=== PATIENT | male | born 1945 | race Caucasian/White ===

== ENCOUNTER 2016-12-01 18:18 | Inpatient (IN) | payer BC, OTHER ==
[~2016-12-01] VITALS: Ht 167.6 cm; Wt 86.5 kg
[2016-12-01] MEDS ORDERED: SODIUM CHLORIDE 0.9% 1000ML 500 ML IV STA (18:41)
--- NOTE | 2016-12-01 18:48 | EMERGENCY ROOM VISIT NOTE ---
History Report prepared by Gio: Dillan Davidson Under the Supervision of: Dr. Gelacio Irvin M.D. First contact with patient: 18:37 Chief Complaint: URINARY SYMPTOMS Stated Complaint: KIDNEY ASSESSMENT History of Present Illness The patient is a 71 year old male with a pacemaker who presents to the Emergency Room with an elevated creatinine level that was detected prior to arrival today. He says that he got routine lab-work today, and Dr. Lujan of [facility] nephrology then called the patient and told him to come here for evaluation because his creatinine was over 6. The patient notes that his creatinine usually runs around 2. He says that for the past couple of weeks, he has felt a bit fatigued with intermittent mild dizziness, but overall has been okay. The patient says that he thinks that his dizziness was due to his blood pressure fluctuations. He denies any vomiting, fevers, cough, congestion, worsening shortness of breath, or diarrhea. The patient notes no history of creatinine level issues. He is on Plavix daily. The patient denies any recent medication changes, and he says that his sugars have been fine recently. Per the patient's family, Dr. Lujan has mentioned possible dialysis in the future but there has no preparation for dialysis. Source of History: patient, family Onset: Detected prior to arrival today Position: other (global - elevated creatinine) Symptom Intensity: creatinine over 6 Quality: other (referred by driver salesman) Associated Symptoms: + fatigue (over past few weeks), No fevers, No cough, No SOB, No vomiting, No diarrhea Note: Associated symptoms: Intermittent dizziness past few weeks. Denies congestion. Review of Systems See HPI for pertinent positives & negatives. A total of 10 systems reviewed and were otherwise negative. Past Medical & Surgical Medical Problems: (1) Diabetes (2) Heart disease (3) HTN (hypertension) (4) Pacemaker Surgical Problems: (1) History of heart bypass surgery Family History Diabetes mellitus FH: heart disease Hypertension Kidney disease Social History Smoking Status: Former Smoker Alcohol Use: none Marital Status: Housing Status: lives with family Occupation Status: retired Current/Historical Medications Scheduled Aspirin (Aspirin Ec), 81 MG PO DAILY Atorvastatin (Lipitor), 20 MG PO DAILY Carvedilol (Coreg), 25 MG PO BID Cholecalciferol (Vitamin D3), 2 CAP PO DAILY Choline Fenofibrate (Trilipix), 1 CAP PO DAILY Clopidogrel (Plavix), 75 MG PO DAILY Fish Oil ([place]-3), 1 CAP PO DAILY Furosemide (Lasix), 80 MG PO DAILY Insulin Aspart (novoLOG INSULIN PUMP ), 1 EA N/A UD Isosorbide Mononitrate Ext Rel (Imdur Ext Rel), 30 MG PO QAM Lisinopril (Zestril), 40 MG PO DAILY Metolazone (Zaroxolyn), 2.5 MG PO DAILY Spironolactone (Aldactone), 25 MG PO DAILY Allergies Coded Allergies: No Known Allergies (Unverified , 12/01/16) Physical Exam Vital Signs Date Time Temp Pulse Resp B/P (MAP) Pulse Ox O2 Delivery O2 Flow Rate FiO2 12/01/16 20:44 Room Air 12/01/16 19:29 69 19 113/56 94 Room Air 12/01/16 19:12 73 12/01/16 18:28 36.8 62 18 103/51 96 Room Air Physical Exam GENERAL: Patient is in no acute distress. HEENT: No acute trauma, normocephalic atraumatic, mucous membranes moist, no nasal congestion, no scleral icterus. NECK: No stridor, no adenopathy, no meningismus, trachea is midline. LUNGS: Clear to auscultation bilaterally, no wheeze, no rhonchi, breath sounds equal. HEART: Irregular rhythm with a normal rate. No murmurs. ABDOMEN: Soft, nontender, bowel sounds positive, no hernias, no peritonitis. EXTREMITIES: No cyanosis or edema, full range of motion of all the joints without pain or difficulty, no signs for acute trauma. NEUROLOGIC: Oriented x 3, no acute motor or sensory deficits, no focal weakness. SKIN: No rash, no jaundice, no diaphoresis. Medical Decision & Procedures Laboratory Results 12/01/16 19:01 Red Blood Count 4.44, Mean Corpuscular Volume 79.7, Mean Corpuscular Hemoglobin 26.1, Mean Corpuscular Hemoglobin Concent 32.8, Mean Platelet Volume 10.7, Neutrophils (%) (Auto) 72.3, Lymphocytes (%) (Auto) 15.0, Monocytes (%) (Auto) 10.0, Eosinophils (%) (Auto) 2.2, Basophils (%) (Auto) 0.3, Neutrophils # (Auto ) 7.03, Lymphocytes # (Auto) 1.46, Monocytes # (Auto) 0.97, Eosinophils # (Auto ) 0.21, Basophils # (Auto) 0.03 12/01/16 19:01 Test 12/01/16 19:01 12/01/16 19:30 White Blood Count 9.72 K/uL (4.8-10.8) Red Blood Count 4.44 M/uL (4.7-6.1) Hemoglobin 11.6 g/dL (14.0-18.0) Hematocrit 35.4 % (42-52) Mean Corpuscular Volume 79.7 fL (80-100) Mean Corpuscular Hemoglobin 26.1 pg (25-34) Mean Corpuscular Hemoglobin Concent 32.8 g/dl (32-36) Platelet Count 241 K/uL (130-400) Mean Platelet Volume 10.7 fL (7.4-10.4) Neutrophils (%) (Auto) 72.3 % Lymphocytes (%) (Auto) 15.0 % Monocytes (%) (Auto) 10.0 % Eosinophils (%) (Auto) 2.2 % Basophils (%) (Auto) 0.3 % Neutrophils # (Auto) 7.03 K/uL (1.4-6.5) Lymphocytes # (Auto) 1.46 K/uL (1.2-3.4) Monocytes # (Auto) 0.97 K/uL (0.11-0.59) Eosinophils # (Auto) 0.21 K/uL (0-0.5) Basophils # (Auto) 0.03 K/uL (0-0.2) RDW Standard Deviation 46.6 fL (36.4-46.3) RDW Coefficient of Variation 15.8 % (11.5-14.5) Immature Granulocyte % (Auto) 0.2 % Immature Granulocyte # (Auto) 0.02 K/uL (0.00-0.02) Prothrombin Time 12.4 SECONDS (9.0-12.0) Prothromb Time International Ratio 1.2 (0.9-1.1) Activated Partial Thromboplast Time 27.1 SECONDS (21.0-31.0) Partial Thromboplastin Ratio 1.0 Anion Gap 15.0 mmol/L (3-11) Est Creatinine Clear Calc Drug Dose 13.2 ml/min Estimated GFR () 11.6 Estimated GFR (Non- 10.0 BUN/Creatinine Ratio 21.4 (10-20) Calcium Level 8.6 mg/dl (8.5-10.1) Magnesium Level 1.9 mg/dl (1.8-2.4) Total Bilirubin 0.6 mg/dl (0.2-1) Aspartate Amino Transf (AST/SGOT) 35 U/L (15-37) Alanine Aminotransferase (ALT/SGPT) 31 U/L (12-78) Alkaline Phosphatase 21 U/L (45-117) Total Creatine Kinase 461 U/L (39-308) Troponin I 0.495 ng/ml (0-0.045) Total Protein 7.4 gm/dl (6.4-8.2) Albumin 3.5 gm/dl (3.4-5.0) Globulin 3.9 gm/dl (2.5-4.0) Albumin/Globulin Ratio 0.9 (0.9-2) Thyroid Stimulating Hormone (TSH) 1.560 uIu/ml (0.300-4.500) Urine Color YELLOW Urine Appearance CLEAR (CLEAR) Urine pH 6.5 (4.5-7.5) Urine Specific [place] 1.009 (1.000-1.030) Urine Protein NEG (NEG) Urine Glucose (UA) NEG (NEG) Urine Ketones NEG (NEG) Urine Occult Blood TRACE (NEG) Urine Nitrite NEG (NEG) Urine Bilirubin NEG (NEG) Urine Urobilinogen NEG (NEG) Urine Leukocyte Esterase NEG (NEG) Urine WBC (Auto) 1-5 /hpf (0-5) Urine RBC (Auto) 0-4 /hpf (0-4) Urine Hyaline Casts (Auto) 1-5 /lpf (0-5) Urine Epithelial Cells (Auto) 5-10 /lpf (0-5) Urine Bacteria (Auto) NEG (NEG) Laboratory results reviewed by me. Medications Administered Medications (Trade) Dose Ordered Sig/Ilene Route Start Time Stop Time Status Last Admin Dose Admin Sodium Chloride 500 ml @ 999 mls/hr Q31M STAT IV 12/01/16 18:41 12/01/16 19:11 DC 12/01/16 18:41 999 MLS/HR ECG Indication: other (elevated creatinine) Rate (beats per minute): 76 Rhythm: other (AV pacemaker) Findings: RBBB, no acute ischemic change, other (occasional [place] beats) ED Course 1837: The patient was evaluated in room A10. A complete history and physical exam was performed. 1840: Ordered NSS 500 ml @ 999 mls/hr IV. 2011: I discussed the patient with Dr. Nurys Freeman electro mechanical designer - he will evaluate the patient for further treatment. 2021: Upon reexamination the patient is resting. I discussed results and treatment plan with the patient. He verbalizes agreement and understanding. The patient will be evaluated for further management. Medical Decision Differential diagnosis includes but is not limited to renal failure, dehydration , UTI, electrolyte imbalance, anemia, infection. There is no leukocytosis or concerning anemia. Renal panel testing shows a somewhat low potassium, there is acute renal failure with a creatinine over 5. No hepatitis. EKG shows a functioning ventricular pacemaker. Cardiac troponin was elevated-this could be consistent with cardiac injury or possibly with his renal failure. Urinalysis does not show evidence for infection. The patient presents here for outpatient laboratory tests that were abnormal. The elevation to the creatinine has been confirmed, he is in acute renal failure. He does have a cardiac troponin elevation. Admission/observation is warranted. I spoke to the patient and case management. The on-call hospitalist was consulted. Medication Reconcilliation Current Medication List: was personally reviewed by me Blood Pressure Screening Patient's blood pressure: Normal blood pressure Consults Time Called: 2004 Consulting Physician: Dr. Nurys Freeman electro mechanical designer Returned Call: 2011 I discussed the patient with Dr. Nurys Freeman electro mechanical designer - he will evaluate the patient for further treatment. Impression Primary Impression: Acute renal failure Additional Impression: Elevated troponin Scribe Attestation The scribe's documentation has been prepared under my direction and personally reviewed by me in its entirety. I confirm that the note above accurately reflects all work, treatment, procedures, and medical decision making performed by me. Departure Information Dispostion Being Evaluated By Hospitalist Referrals Cj Lujan DO (PCP) Patient Instructions My [facility] Problem Qualifiers
[2016-12-01] MEDS ORDERED: OMEG10007 PO (19:03)
[2016-12-01] MEDS ORDERED: METO2.5T PO (19:03)
[2016-12-01] MEDS ORDERED: CHOL2000 PO (19:03)
[2016-12-01] MEDS ORDERED: CARV25TA2 PO (19:03)
[2016-12-01] MEDS ORDERED: FURO80TA63 PO (19:03)
[2016-12-01] MEDS ORDERED: SPIR25TA PO (19:03)
[2016-12-01] MEDS ORDERED: ASPI81TA28 PO (19:03)
[2016-12-01] MEDS ORDERED: ATOR-22 PO (19:03)
[2016-12-01] MEDS ORDERED: CLOP1TAB15 PO (19:03)
[2016-12-01] MEDS ORDERED: INSPMPNVLG (19:03)
[2016-12-01] MEDS ORDERED: ISOS30TA3 PO (19:03)
[2016-12-01] MEDS ORDERED: LISI40TA PO (19:03)
[2016-12-01] MEDS ORDERED: CHOL135C6 PO (19:03)
[2016-12-01 19:14] LABS: BASO % 0.3 %; BASO ABS # 0.03 K/uL (0-0.2); COMPLETE YES; EOS % 2.2 %; HEMATOCRIT 35.4 % (42-52); IG% 0.2 %; LYMPH ABS # 1.46 K/uL (1.2-3.4); MEAN CELL VOLUME 79.7 fL (80-100); MEAN CORPUSCULAR HEMOGLOBIN 26.1 pg (25-34); MEAN CORPUSCULAR HGB CONC 32.8 g/dl (32-36); MEAN PLATELET VOLUME 10.7 fL (7.4-10.4); NEUT % 72.3 %; PLATELET COUNT 241 K/uL (130-400); RED BLOOD COUNT 4.44 M/uL (4.7-6.1); WHITE BLOOD COUNT 9.72 K/uL (4.8-10.8)
[2016-12-01 19:25] LABS: INR 1.2 (0.9-1.1); PROTHROMBIN TIME (PATIENT) 12.4 SECONDS (9.0-12.0)
[2016-12-01 19:46] LABS: URINE APPEARANCE CLEAR (CLEAR); URINE BILIRUBIN NEG (NEG); URINE COLOR YELLOW; URINE NITRITE NEG (NEG); URINE PH 6.5 (4.5-7.5); URINE SPECIFIC GRAVITY 1.009 (1.000-1.030); UROBILINOGEN NEG (NEG); ZZUR CULT IF INDIC CLEAN CATCH NO
[2016-12-01 19:48] LABS: MANUAL MICROSCOPIC REQUIRED? NO; REVIEW REQ? NO
[2016-12-01 19:52] LABS: ALB/GLOB RATIO 0.9 (0.9-2); BUN/CREATININE RATIO 21.4 (10-20); CALCIUM 8.6 mg/dl (8.5-10.1); CREATININE 5.37 mg/dl (0.60-1.40); MAGNESIUM 1.9 mg/dl (1.8-2.4); POTASSIUM 2.7 mmol/L (3.5-5.1); THYROID STIMULATING HORMONE 1.56 uIu/ml (0.300-4.500)
[2016-12-01 20:44] VITALS: BMI 29.9
[2016-12-01] MEDS ORDERED: ACETAMINOPHEN 325 MG TAB PO PRN (21:00)
[2016-12-01] MEDS ORDERED: NITROGLYCERIN 0.4 MG SL PER TAB CHARGE SL PRN (21:00)
[2016-12-01] MEDS ORDERED: NovoLOG INSULIN PUMP SCH (21:00)
[2016-12-01] MEDS ORDERED: ONDANSETRON INJ 2 MG/ML 2 ML VIAL IV PRN (21:00)
[2016-12-01] MEDS ORDERED: INSULIN ASPART 100 UNITS/ML 3 ML PEN SC SCH (21:00)
[2016-12-01] MEDS ORDERED: POTASSIUM CHLORIDE 10 MEQ TABCR PO STA (21:13)
[2016-12-01 21:30] VITALS: BP 101/63; PULSE 71; TEMP 36.5; O2SAT 92
[2016-12-01] MEDS ORDERED: POTASSIUM CHLORIDE 10 MEQ / 100ML WTR IV ONE (21:37)
[2016-12-01] MEDS: POTASSIUM CHLR 10 MEQ / WTR 10 MEQ in PREMIXED WATER 100 ML IV SCH ×2 (21:39→22:45)
--- NOTE | 2016-12-01 21:54 | DIAGNOSTIC IMAGING REPORT ---
SINGLE VIEW CHEST CLINICAL HISTORY: Chest congestion. FINDINGS: An AP, portable, upright chest radiograph is obtained. No prior studies are available for comparison at the time of dictation. The examination is degraded by portable technique and patient rotation. A 3-lead cardiac AICD partially obscures the left lower chest. The patient is status post midline sternotomy. The heart is enlarged and there is atherosclerotic calcification of the thoracic aorta. The pulmonary vasculature is noncongested. Nonspecific interstitial thickening is likely chronic. No airspace consolidation, large pleural effusion, or pneumothorax is seen. The skeletal structures are osteopenic. The bony thorax is grossly intact. IMPRESSION: 1. Cardiomegaly and AICD. There is no radiographic evidence of congestive failure. 2. No airspace consolidation or large pleural effusion is identified. Electronically signed by: Gelacio Schmitt M.D. 12/01/2016 9:53 PM Dictated Date/Time: 12/01/2016 9:52 PM
[2016-12-01] MEDS ORDERED: GLUCOSE 10 TABS/TUBE PO PRN (22:15)
[2016-12-01] MEDS ORDERED: GLUCOSE 40% GEL 15 GM TUBE PO PRN (22:15)
[2016-12-01] MEDS ORDERED: INSULIN ASPART 100 UNITS/ML VIAL SC PRN (22:15)
[2016-12-01] MEDS ORDERED: DEXTROSE 50% 50 ML SYR IV PRN (22:15)
[2016-12-01] MEDS ORDERED: GLUCAGON FOR INJ 1 MG VIAL SQ PRN (22:15)
[2016-12-01] MEDS: CARVEDILOL 25 MG TAB PO SCH (22:51)
[2016-12-01] MEDS: NSS + 20MEQ KCL 1000ML 1,000 ML IV SCH (22:51)
[2016-12-01] MEDS: HEPARIN SOD 5000 UNIT/0.5 ML CARP SQ SCH (22:52)
[2016-12-01 23:19] VITALS: BP 107/60; PULSE 62; TEMP 36.4; O2SAT 95
--- NOTE | 2016-12-01 23:36 | HISTORY & PHYSICAL EXAMINATION ---
DATE OF ADMISSION: 12/01/2016 CHIEF COMPLAINT: Abnormal labs. HISTORY OF PRESENT ILLNESS: This is a 71-year-old male with a past medical history significant for CAD status post stent, diabetes, hyperlipidemia, chronic kidney disease stage 4, hypertension, systolic CHF status post pacemaker and defibrillator comes to ER as outpatient routine labs showed his creatinine was elevated and advised to come to the hospital. The patient says since the last 2 weeks his blood pressure is running low and also his recent pacemaker checkup showed one of the leads was malfunctioning and supposed to get it fixed on November 26. He follows with cardiology at [place]. He is feeling somewhat weak and tired, but denies any headaches, no blurred vision. Has occasional dizziness. No runny nose, no cough, no sore throat and no difficulty swallowing. No chest pain, no shortness of breath, no nausea, no vomiting and no abdominal pain. Normal bowel and bladder movements. Appetite is okay. No blood in the stool, no blood in the urine. No skin rash. No swelling in the legs. Currently, he is resting comfortably and hemodynamically stable. ALLERGIES: No known drug allergies. PAST MEDICAL HISTORY: As mentioned above. PAST SURGICAL HISTORY: CABG, left heart catheterization and pacemaker insertion. MEDICATIONS: The patient is on insulin pump, Lasix 80 mg p.o. daily, Lipitor 20 mg p.o. daily, Coreg 25 mg p.o. b.i.d., Imdur 30 mg p.o. daily, nitroglycerin 0.4 mg sublingual p.r.n., lisinopril 40 mg p.o. daily, spironolactone 25 mg p.o. daily, fenofibrate 135 mcg p.o. daily, Zaroxolyn 2.5 mg p.o. daily, aspirin 81 mg p.o. daily, cholecalciferol 1000 mg p.o. daily, Plavix 75 mg p.o. daily and omega-3 one gram p.o. daily. FAMILY HISTORY: Significant for father and mother who had heart disease. SOCIAL HISTORY: Former smoker, smoked for 10 years. No alcohol use. No drug use. . REVIEW OF SYMPTOMS: As per HPI. Rest of review of systems is negative. PHYSICAL EXAMINATION: GENERAL: The patient is of moderate build, not in distress. VITAL SIGNS: Temperature 36.8, pulse 69, respiratory rate 19, blood pressure 113/56 and oxygen 94% room air. HEENT: No pallor, no icterus. Pupils are equal, round and reactive to light. NECK: No JVD, no neck masses, no carotid bruits. CARDIOVASCULAR: S1, S2 heard. Regular rate and rhythm. No murmur, no gallop. RESPIRATORY SYSTEM: Normal AP diameter. No accessory muscle use. No wheezing, no crackles. ABDOMEN: Soft, bowel sounds are present. Nontender. No distention. CENTRAL NERVOUS SYSTEM: Cranial nerves II-XII are grossly intact. Nonfocal. EXTREMITIES: No edema, no erythema. LABORATORIES: Sodium 137, potassium 2.7, chloride 91, CO2 31, BUN 115 creatinine 5.5, serum glucose 69, calcium 8.6, magnesium 1.9, total bilirubin 0.6, AST 35, ALT 31, alkaline phosphatase 21, total creatinine kinase 461, troponin I 0.495, TSH 1.5, PT 12.4 and INR 1.2. Urinalysis; positive for esterase, occult blood. EKG; shows right bundle branch block with rate of [address] changes seen.No previous EKGs to compare. ASSESSMENT AND PLAN: This is a 71-year-old male, who presents with ongoing low blood pressure and found to have acute renal failure. 1. Acute renal failure and chronic kidney disease stage 4; baseline creatinine around 2.3. He presented with outpatient labs creatinine of 6 and in the ER creatinine was 5.3. Patient says his blood pressure is running on the lower side and also one of his pacemaker leads is not working; he is supposed to get it fixed. We will hold his Lasix and hold his Aldactone. We will hold his lisinopril and metolazone Place him on IV normal saline at 100 mL per hour for now. Follow labs in the a.m. Follow chest x-ray.in am and adjust fluids in the morning. Nephrology consulted. We will also get a pacemaker interrogation. 2. Hypokalemia. We will replace. 3. Elevated troponin, the patient is asymptomatic. We will follow serial cardiac enzymes and echocardiogram; cardiology consulted. 4. Chronic systolic congestive heart failure with ejection fraction of around 15-20% with mild elevation in troponin. We will repeat echocardiogram, holding all the diuretics and place him on IV fluids. We will monitor for volume overload. The patient is also status post pacemaker and question of one of the pacemaker leads malfunctioning; we will interrogate pacemaker and await cardiology input. 5. History of coronary artery disease, status post coronary artery bypass grafting and status post stents, we will continue home medications of aspirin, Plavix, Coreg with holding parameters and Lipitor. Follow echocardiogram. 6. History of hypotension. Holding lisinopril and diuretics. Continue Coreg with holding parameters. We will monitor blood pressure. 7. Hyperlipidemia. Continue statin. 8 Diabetes, on insulin pump which we will continue. Follow HbA1c levels. We will also place him on insulin sliding scale. 9. Deep venous thrombosis prophylaxis, heparin subQ. DISPOSITION: Closely monitor on the tele floor. Physical therapy and occupational therapy prior to discharge. Social Service to help with discharge planning. Level 1. Full code. MTDD
[2016-12-02] VITALS (8 sets, daily range): BP systolic 93–141; BP diastolic 51–69; PULSE 59–87; TEMP 36.4–36.9; O2SAT 92–99; BMI 29.6
[2016-12-02 05:29] LABS: BASO % 0.2 %; BASO ABS # 0.02 K/uL (0-0.2); COMPLETE YES; EOS % 3.4 %; HEMATOCRIT 35.4 % (42-52); IG% 0.2 %; LYMPH % 20.6 %; LYMPH ABS # 1.84 K/uL (1.2-3.4); MEAN CELL VOLUME 80.3 fL (80-100); MEAN CORPUSCULAR HEMOGLOBIN 26.3 pg (25-34); MEAN CORPUSCULAR HGB CONC 32.8 g/dl (32-36); MEAN PLATELET VOLUME 11.3 fL (7.4-10.4); MONO % 6.8 %; NEUT % 68.8 %; PLATELET COUNT 219 K/uL (130-400); RED BLOOD COUNT 4.41 M/uL (4.7-6.1); WHITE BLOOD COUNT 8.95 K/uL (4.8-10.8)
[2016-12-02 06:00] LABS: CALCIUM 8.7 mg/dl (8.5-10.1); CREATININE 4.37 mg/dl (0.60-1.40); MAGNESIUM 1.8 mg/dl (1.8-2.4)
[2016-12-02 06:05] LABS: ESTIMATED AVERAGE GLUCOSE 183 mg/dl; HA1C FLAG Normal (Normal)
[2016-12-02 06:10] LABS: CKMB/CK RATIO 1.6 (0-3.0)
[2016-12-02] MEDS ORDERED: POTASSIUM CHLORIDE 20 MEQ TABCR PO ONE (06:45)
[2016-12-02] MEDS ORDERED: PERFLUTREN LIPID MICROSPHERE (DEFINITY) IV ONE (06:53)
[2016-12-02] MEDS: NovoLOG INSULIN PUMP SCH ×4 (07:00→20:51)
[2016-12-02] MEDS: NSS + 20MEQ KCL 1000ML 1,000 ML IV SCH ×2 (08:18→17:40)
[2016-12-02] MEDS: CARVEDILOL 25 MG TAB PO SCH ×2 (08:18→20:51)
[2016-12-02] MEDS: ISOSORBIDE MONONITRATE 30 MG TABCR PO SCH (08:19)
[2016-12-02] MEDS: CHOLECALCIFEROL 1000 INTER.UNIT TAB PO SCH ×2 (08:19→20:52)
[2016-12-02] MEDS: ASPIRIN 81 MG ECTAB PO SCH (08:20)
[2016-12-02] MEDS: ATORVASTATIN 20 MG TAB PO SCH (08:20)
[2016-12-02] MEDS: CLOPIDOGREL BISULFATE 75 MG TAB PO SCH (08:20)
[2016-12-02] MEDS ORDERED: POTASSIUM CITRATE 10 MEQ TAB PO ONE (09:00)
[2016-12-02] MEDS: HEPARIN SOD 5000 UNIT/0.5 ML CARP SQ SCH ×2 (10:32→21:42)
--- NOTE | 2016-12-02 11:05 | Cardiology Consultation ---
Cardiology Consultation Date of Consultation: Dec 02, 2016 Requesting Physician: Nurys Attending Retarder Operator: Raj (Nitish Mercado PA-C) History of Present Illness Mr. Lopez is a 71 year old male who is being seen at the request of Dr. Nuno. Reason for Cardiology Consultation is possible pacemaker malfunction. Mr. Lopez was referred to the [facility] by Dr. Lujan after routine outpatient laboratory work revealed acute on chronic renal dysfunction and hypokalemia. His notes that he has been feeling somewhat poorly over the last couple of weeks, sluggish, fatigued, hypotensive. Occasional dizziness. Urine is concentrated. No constipation. No nausea, vomiting, or diarrhea. No recent illnesses. No chest pain. No angina. No palpitations. Stable NYHA Class III dyspnea, without orthopnea or PND to accompany the mild lower extremity edema. No records are available from his outpatient sorting grapple operator for review. (Nitish Mercado PA-C) Past Medical/Surgical History Problem List: Past Medical and Surgical History: Coronary artery disease Status post CABG x 2 in June 2001 Status post unknown PCI's Sick Sinus Syndrome status post dual chamber pacemaker implantation with upgrade on 02/03/[address] [employer] BiV ICD Presumed ischemic cardiomyopathy. EF unknown. 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 Father in his 30's "from RA." Brother passed with an KS. Three sisters, two with diabetes mellitus. (Nitish Mercado PA-C) Diabetes mellitus FH: heart disease Hypertension Kidney disease (Josue Anthony, ) Social History Social History: Reformed smoker. Quit ~20 years ago. No alcohol. No illegal drug use. . Two children. Lives in [facility], 30[facility] years. (Nitish Mercado PA-C) Review Of Systems General: No fever, chills, or night sweats HEENT: Glasses. MOAPA, hearing aides. No headache. Cardiovascular: See above. Pulmonary: See above. No history of asthma, COPD, emphysema, or sleep apnea. No hemoptysis. Gastrointestinal: No nausea, vomiting, diarrhea, or constipation. No melena or hematochezia. Skin: No rash. Musculoskeletal: Arthritis. Neurological: Denies history of TIA, CVA, or seizures Complete review of systems is as stated above, negative, or noncontributory. (Nitish Mercado PA-C) Allergies Coded Allergies: No Known Allergies (Unverified , 12/01/16) Medications Reported Home Medications Medications Dose Route/Sig Max Daily Dose Days Date Category [place]-3 (Fish Oil) 1 Ea Cap 1 Cap PO DAILY 12/01/16 Reported Vitamin D3 (Cholecalciferol) 2,000 Unit Cap 2 Cap PO DAILY 12/01/16 Reported Zaroxolyn (Metolazone) 2.5 Mg Tab 2.5 Mg PO DAILY 12/01/16 Reported Lipitor (Atorvastatin Calcium) 20 Mg Tab 20 Mg PO DAILY 12/01/16 Reported Trilipix (Choline Fenofibrate) 135 Mg Cap 1 Cap PO DAILY 12/01/16 Reported Aspirin Ec (Aspirin) 81 Mg Tab 81 Mg PO DAILY 12/01/16 Reported Lasix (Furosemide) 80 Mg Tab 80 Mg PO DAILY 12/01/16 Reported Plavix (Clopidogrel Bisulfate) 75 Mg Tab 75 Mg PO DAILY 12/01/16 Reported Coreg (Carvedilol) 25 Mg Tab 25 Mg PO BID 12/01/16 Reported Imdur Ext Rel (Isosorbide Mononitrate) 30 Mg Ertab 30 Mg PO QAM 12/01/16 Reported Zestril (Lisinopril) 40 Mg Tab 40 Mg PO DAILY 12/01/16 Reported Aldactone (Spironolactone) 25 Mg Tab 25 Mg PO DAILY 12/01/16 Reported novoLOG INSULIN PUMP (Insulin Aspart) 1 Ea Inj 1 Ea N/A UD 12/01/16 Reported (Nitish Mercado PAYayoC) Physical Exam Vital Signs (Last 8hrs): Last 8 Hrs Date Time Temp Pulse Resp B/P (MAP) Pulse Ox O2 Delivery O2 Flow Rate FiO2 12/02/16 08:00 Room Air 12/02/16 07:40 36.9 87 20 134/63 (86) 99 12/02/16 04:00 Room Air 12/02/16 03:21 36.7 76 18 99/59 (72) 92 Room Air General Appearance: Alert and Oriented x3. NAD. HEENT: Normocephalic Atraumatic. PER. EOMI. Conjunctiva and sclera clear Neck: Supple. Bilateral carotid bruits. Neck veins are flat. Respiratory: Diminished but clear to auscultation. No wheezes. No rales. Breath sounds clear to auscultation bilaterally. Cardiovascular: Irregular in the 70's. Soft apical systolic murmur. Grade II/ systolic ejection murmur. No diastolic murmur. No rub. PMI is displaced laterally. Abdomen: +BS. Soft. Nontender. Extremities: Mild edema. No clubbing. No cyanosis. Distal pulses are 1/4 bilaterally. Neuro: No focal deficits. Psychiatric: Normal affect. (Nitish Mercado PA-C) Data Last 24 Hours Test 12/01/16 19:01 12/01/16 19:30 12/02/16 05:07 White Blood Count 9.72 K/uL 8.95 K/uL Red Blood Count 4.44 M/uL 4.41 M/uL Hemoglobin 11.6 g/dL 11.6 g/dL Hematocrit 35.4 % 35.4 % Mean Corpuscular Volume 79.7 fL 80.3 fL Mean Corpuscular Hemoglobin 26.1 pg 26.3 pg Mean Corpuscular Hemoglobin Concent 32.8 g/dl 32.8 g/dl Platelet Count 241 K/uL 219 K/uL Mean Platelet Volume 10.7 fL 11.3 fL Neutrophils (%) (Auto) 72.3 % 68.8 % Lymphocytes (%) (Auto) 15.0 % 20.6 % Monocytes (%) (Auto) 10.0 % 6.8 % Eosinophils (%) (Auto) 2.2 % 3.4 % Basophils (%) (Auto) 0.3 % 0.2 % Neutrophils # (Auto) 7.03 K/uL 6.16 K/uL Lymphocytes # (Auto) 1.46 K/uL 1.84 K/uL Monocytes # (Auto) 0.97 K/uL 0.61 K/uL Eosinophils # (Auto) 0.21 K/uL 0.30 K/uL Basophils # (Auto) 0.03 K/uL 0.02 K/uL RDW Standard Deviation 46.6 fL 46.4 fL RDW Coefficient of Variation 15.8 % 15.8 % Immature Granulocyte % (Auto) 0.2 % 0.2 % Immature Granulocyte # (Auto) 0.02 K/uL 0.02 K/uL Prothrombin Time 12.4 SECONDS Prothromb Time International Ratio 1.2 Activated Partial Thromboplast Time 27.1 SECONDS Partial Thromboplastin Ratio 1.0 Sodium Level 137 mmol/L 139 mmol/L Potassium Level 2.7 mmol/L 3.0 mmol/L Chloride Level 91 mmol/L 94 mmol/L Carbon Dioxide Level 31 mmol/L 34 mmol/L Anion Gap 15.0 mmol/L 11.0 mmol/L Blood Urea Nitrogen 115 mg/dl 109 mg/dl Creatinine 5.37 mg/dl 4.37 mg/dl Est Creatinine Clear Calc Drug Dose 13.2 ml/min 16.2 ml/min Estimated GFR () 11.6 14.9 Estimated GFR (Non- 10.0 12.9 BUN/Creatinine Ratio 21.4 25.0 Random Glucose 69 mg/dl 98 mg/dl Calcium Level 8.6 mg/dl 8.7 mg/dl Magnesium Level 1.9 mg/dl 1.8 mg/dl Total Bilirubin 0.6 mg/dl Aspartate Amino Transf (AST/SGOT) 35 U/L Alanine Aminotransferase (ALT/SGPT) 31 U/L Alkaline Phosphatase 21 U/L Total Creatine Kinase 461 U/L 453 U/L Troponin I 0.495 ng/ml 0.523 ng/ml Total Protein 7.4 gm/dl Albumin 3.5 gm/dl Globulin 3.9 gm/dl Albumin/Globulin Ratio 0.9 Thyroid Stimulating Hormone (TSH) 1.560 uIu/ml Urine Color YELLOW Urine Appearance CLEAR Urine pH 6.5 Urine Specific [place] 1.009 Urine Protein NEG Urine Glucose (UA) NEG Urine Ketones NEG Urine Occult Blood TRACE Urine Nitrite NEG Urine Bilirubin NEG Urine Urobilinogen NEG Urine Leukocyte Esterase NEG Urine WBC (Auto) 1-5 /hpf Urine RBC (Auto) 0-4 /hpf Urine Hyaline Casts (Auto) 1-5 /lpf Urine Epithelial Cells (Auto) 5-10 /lpf Urine Bacteria (Auto) NEG Estimated Average Glucose 183 mg/dl Hemoglobin A1c 8.0 % Creatine Kinase MB 7.4 ng/ml Creatine Kinase MB Ratio 1.6 Admission chest x-ray showed no radiographic evidence of congestive heart failure. Device interrogation this morning by the [employer] service representative reveals a [employer] Quadra Assura biventricular pacemaker defibrillator. Atrial lead impedances are elevated, 2074. Estimated remaining longevity: 5.7 years. Mode: DDIR. Base Rate 60 bpm. He is only biventricular pacing 70% of the time. Atrial paced 58% of the time. No AT/AF observed. No VT/VF noted. EKG dated and timed 01-DEC-2016 @ 18:49:17: AV sequential or dual chamber electronic pacemaker. Premature ventricular complexes. Telemetry reviewed: Intermittent atrial pacing as well as biventricular pacing. There are periods of sinus in the 70-90 bpm range. No atrial fibrillation. (Nitish Mercado PA-C) Assessment & Plan Admission with acute on chronic renal failure appearing to be secondary to hypotension and intravascular volume depletion. Furosemide, spironolactone, metolazone, and Lisinopril all appropriately held on presentation. Cardiology consultation obtained locally due to concern for device malfunction. Interrogation reveals elevated atrial lead impedances, ? fractured atrial lead. This was reprogrammed by the [employer] Supervisor Product Inspection as follows: Atrial pulse amplitude increased from 2.5 V to 3.0 V. Atrial lead monitoring changes from 2,000 to 3,000 ohms. The patient will follow-up with his outpatient sorting grapple operator after discharge. He may benefit from switching Carvedilol to Toprol XL and/or increasing the base rate on his device in an attempt to increase biventricular pacing. I would also recommend discontinuation of fenofibrate given his renal dysfunction, concurrent uptitration of statin therapy. He is also scheduled to be seen by Dr. Fowler, Fine Jewelry Sales Associate at [facility] on January 26, 2017. The elevated cardiac troponin concentration is in the absence of evidence to suggest an acute coronary syndrome, likely reflecting the renal failure, chronic systolic dysfunction, chronic illnesses. (Nitish Mercado PA-C) CARDIOLOGY ATTENDING ADDENDUM: The patient was seen and personally examined. Agree with Nitish Mercado PA-C's findings and plans as documented above. Pt. followed by [facility]. Post D/C pt. can have his device reevaluated. (Josue Anthony, DO)
[2016-12-02 13:44] LABS: CKMB/CK RATIO 1.7 (0-3.0)
--- NOTE | 2016-12-02 13:54 | Progress Note ---
Internal Med Progress Note Date of Service: Dec 02, 2016. Provider Documentation: SUBJECTIVE: The patient was seen and examined Admitted with Acute on Chronic Renal failure Known h/o pacemaker wire malfunction Denies any symptoms OBJECTIVE: Vital Signs-as noted below Exam: General-No distress at rest Eyes-normal ENT-normal Neck-Supple Lungs-Clear to ausucltate bilaterally Heart-Regular,no murmur Abdomen-Benign,no masses,bowel sound present Extremities-No edema Neuro-AAOx3 NO focal neuro deficit Lab data as noted below. ASSESSMENT & PLAN: This is a 71-year-old male, who presents with ongoing low blood pressure and found to have acute renal failure. Acute renal failure and chronic kidney disease stage 4; Baseline creatinine around 2.3. He presented with outpatient labs creatinine of 6 and in the ER creatinine was 5.3. Hold his Lasix ,Aldactone,lisinopril and metolazone Has been on IV normal saline at 100 mL per hour for now. Nephrology consulted. Creatinine is a little better Advised to drink more fluid and will monitor fluid status Hypokalemia. We will replace. Likely secondary to Diuretics Elevated troponin, the patient is asymptomatic. Doubt any ACS Likely secondary to BRANDI Cardiology consulted Chronic systolic congestive heart failure Ejection fraction of around 15-20% with mild elevation in troponin. Repeat echocardiogram, holding all the diuretics and place him on IV fluids. Status post pacemaker and question of one of the pacemaker leads malfunctioning; Interrogate pacemaker and await cardiology input. History of coronary artery disease, status post coronary artery bypass grafting and status post stents, we will continue home medications of aspirin, Plavix, Coreg with holding parameters and Lipitor. Follow echocardiogram. History of hypotension. Holding lisinopril and diuretics. Continue Coreg with holding parameters. We will monitor blood pressure. Hyperlipidemia. Continue statin. Diabetes, on insulin pump which we will continue. Follow HbA1c levels. We will also place him on insulin sliding scale. Deep venous thrombosis prophylaxis, heparin subQ. DISPOSITION Awaited Vital Signs: Date Time Temp Pulse Resp B/P (MAP) Pulse Ox O2 Delivery O2 Flow Rate FiO2 12/02/16 12:00 Room Air 12/02/16 11:55 36.8 79 18 141/69 (93) 99 12/02/16 08:00 Room Air 12/02/16 07:40 36.9 87 20 134/63 (86) 99 12/02/16 04:00 Room Air 12/02/16 03:21 36.7 76 18 99/59 (72) 92 Room Air 12/02/16 00:00 Room Air 12/01/16 23:19 36.4 62 20 107/60 (76) 95 12/01/16 21:43 65 19 110/57 95 12/01/16 21:30 36.5 71 18 101/63 (76) 92 Room Air 12/01/16 20:44 Room Air 12/01/16 19:29 69 19 113/56 94 Room Air 12/01/16 19:12 73 12/01/16 18:28 36.8 62 18 103/51 96 Room Air Lab Results: Results Past 24 Hours Test 12/01/16 19:01 12/01/16 19:30 12/02/16 05:07 12/02/16 06:50 Range/Units White Blood Count 9.72 8.95 4.8-10.8 K/uL Red Blood Count 4.44 4.41 4.7-6.1 M/uL Hemoglobin 11.6 11.6 14.0-18.0 g/dL Hematocrit 35.4 35.4 42-52 % Mean Corpuscular Volume 79.7 80.3 80-100 fL Mean Corpuscular Hemoglobin 26.1 26.3 25-34 pg Mean Corpuscular Hemoglobin Concent 32.8 32.8 32-36 g/dl Platelet Count 241 219 130-400 K/uL Mean Platelet Volume 10.7 11.3 7.4-10.4 fL Neutrophils (%) (Auto) 72.3 68.8 % Lymphocytes (%) (Auto) 15.0 20.6 % Monocytes (%) (Auto) 10.0 6.8 % Eosinophils (%) (Auto) 2.2 3.4 % Basophils (%) (Auto) 0.3 0.2 % Neutrophils # (Auto) 7.03 6.16 1.4-6.5 K/uL Lymphocytes # (Auto) 1.46 1.84 1.2-3.4 K/uL Monocytes # (Auto) 0.97 0.61 0.11-0.59 K/uL Eosinophils # (Auto) 0.21 0.30 0-0.5 K/uL Basophils # (Auto) 0.03 0.02 0-0.2 K/uL RDW Standard Deviation 46.6 46.4 36.4-46.3 fL RDW Coefficient of Variation 15.8 15.8 11.5-14.5 % Immature Granulocyte % (Auto) 0.2 0.2 % Immature Granulocyte # (Auto) 0.02 0.02 0.00-0.02 K/uL Prothrombin Time 12.4 9.0-12.0 SECONDS Prothromb Time International Ratio 1.2 0.9-1.1 Activated Partial Thromboplast Time 27.1 21.0-31.0 SECONDS Partial Thromboplastin Ratio 1.0 Sodium Level 137 139 136-145 mmol/L Potassium Level 2.7 3.0 3.5-5.1 mmol/L Chloride Level 91 94 98-107 mmol/L Carbon Dioxide Level 31 34 21-32 mmol/L Anion Gap 15.0 11.0 3-11 mmol/L Blood Urea Nitrogen 115 109 7-18 mg/dl Creatinine 5.37 4.37 0.60-1.40 mg/dl Est Creatinine Clear Calc Drug Dose 13.2 16.2 ml/min Estimated GFR () 11.6 14.9 Estimated GFR (Non- 10.0 12.9 BUN/Creatinine Ratio 21.4 25.0 10-20 Random Glucose 69 98 70-99 mg/dl Calcium Level 8.6 8.7 8.5-10.1 mg/dl Magnesium Level 1.9 1.8 1.8-2.4 mg/dl Total Bilirubin 0.6 0.2-1 mg/dl Aspartate Amino Transf (AST/SGOT) 35 15-37 U/L Alanine Aminotransferase (ALT/SGPT) 31 12-78 U/L Alkaline Phosphatase 21 45-117 U/L Total Creatine Kinase 461 453 39-308 U/L Troponin I 0.495 0.523 0-0.045 ng/ml Total Protein 7.4 6.4-8.2 gm/dl Albumin 3.5 3.4-5.0 gm/dl Globulin 3.9 2.5-4.0 gm/dl Albumin/Globulin Ratio 0.9 0.9-2 Thyroid Stimulating Hormone (TSH) 1.560 0.300-4.500 uIu/ml Urine Color YELLOW Urine Appearance CLEAR CLEAR Urine pH 6.5 4.5-7.5 Urine Specific [place] 1.009 1.000-1.030 Urine Protein NEG NEG Urine Glucose (UA) NEG NEG Urine Ketones NEG NEG Urine Occult Blood TRACE NEG Urine Nitrite NEG NEG Urine Bilirubin NEG NEG Urine Urobilinogen NEG NEG Urine Leukocyte Esterase NEG NEG Urine WBC (Auto) 1-5 0-5 /hpf Urine RBC (Auto) 0-4 0-4 /hpf Urine Hyaline Casts (Auto) 1-5 0-5 /lpf Urine Epithelial Cells (Auto) 5-10 0-5 /lpf Urine Bacteria (Auto) NEG NEG Estimated Average Glucose 183 mg/dl Hemoglobin A1c 8.0 4.5-5.6 % Creatine Kinase MB 7.4 0.5-3.6 ng/ml Creatine Kinase MB Ratio 1.6 0-3.0 Bedside Glucose 78 70-99 mg/dl Test 12/02/16 11:08 12/02/16 13:02 Range/Units Bedside Glucose 130 70-99 mg/dl Creatine Kinase MB Ratio 0-3.0
--- NOTE | 2016-12-02 15:10 | ECHOCARDIOGRAM REPORT ---
*NOTICE TO RECEIVING REPUBLICAN AGENCY This information is strictly Confidential and protected under [place] law. [place] law prohibits you from making any further disclosure of this information unless further disclosure is expressly permitted by the written consent of the person to whom it pertains or is authorized by law. A general authorization for the release of medical or other information is not sufficient for this purpose. Hospital accepts no responsibility if the information is made available to any other person, INCLUDING THE PATIENT. Interpretation Summary * Name: DC JOHNSON Study Date: 12/02/2016 06:24 AM BP: 99/59 mmHg * Patient Location: C.2T\S\E222\S\1 HR: 62 * : 1945 (M/d/yyyy) Gender: Male Height: 66 in * Age: 71 yrs Ethnicity: CA Weight: 185 lb * Ordering Physician: Amando Nuno * Referring Physician: Cj Lujan I. * Performed By: Kandy Rehman RCS * * Reason For Study: ELEVATED TROPONIN / CHF / PACEMAKER MALFUNCTION?? * BSA: 1.9 m2 * -- Conclusions -- * The left ventricle is moderately dilated. * Left ventricular systolic function is severely reduced. * Ejection Fraction = 15-20%. * The right ventricle is mild to moderately dilated. * The right ventricular systolic function is mild to moderately reduced. * The left atrium is moderately dilated. * The right atrium is mild to moderately dilated. * There is mild mitral regurgitation. * There is moderate tricuspid regurgitation. * There is a pacemaker lead in the right ventricle. Procedure Details * A complete two-dimensional transthoracic echocardiogram was performed (2D, M-mode, Doppler and color flow Doppler). * A contrast injection of Definity was performed to improve assessment of LV function. * Contrast was injected into an intravenous site in the left arm. * One vial of Definity ultrasound contrast was diluted in normal saline to a total volume of 10 ml. A total of '2' ml of solution was administered during imaging. * Lot # [id number] of Definity utilized for procedure. * Expiration date DEC 01. * The attending nurse who injected the contrast agent was ASCENCION COBB RN. Left Ventricle * The left ventricle is moderately dilated. * There is borderline concentric left ventricular hypertrophy. * Ejection Fraction = 15-20%. * Left ventricular systolic function is severely reduced. Right Ventricle * The right ventricle is mild to moderately dilated. * There is a pacemaker lead in the right ventricle. * The right ventricular systolic function is mild to moderately reduced. Atria * The left atrium is moderately dilated. * The right atrium is mild to moderately dilated. Mitral Valve * The mitral valve is grossly normal. * There is mild mitral regurgitation. Tricuspid Valve * The tricuspid valve is not well visualized, but is grossly normal. * There is moderate tricuspid regurgitation. Aortic Valve * The aortic valve is tricuspid. The leaflet thickness if normal. There is no aortic stenosis, and no significant insufficiency. * The aortic valve opens well. * There is no significant aortic regurgitation. Pericardium/Pleural * There is no pericardial effusion. MMode 2D Measurements and Calculations IVSd 1.2 cm IVSs 1.3 cm LVIDd 5.7 cm LVIDs 5.5 cm LVPWd 1.1 cm LVPWs 1.2 cm IVS/LVPW 1.1 FS 2.8 % EDV(Teich) 158.8 ml ESV(Teich) 148.6 ml EF(Teich) 6.4 % EDV(cubed) 183.2 ml ESV(cubed) 168.1 ml EF(cubed) 8.2 % % IVS thick 2.5 % % LVPW thick 9.9 % LV mass(C)d 282.6 grams LV mass(C)dI 146.1 grams/m\S\2 LV mass(C)s 292.3 grams LV mass(C)sI 151.1 grams/m\S\2 SV(Teich) 10.1 ml SI(Teich) 5.2 ml/m\S\2 SV(cubed) 15.1 ml SI(cubed) 7.8 ml/m\S\2 Ao root diam 2.7 cm Ao root area 5.5 cm\S\2 ACS 1.8 cm LA dimension 4.5 cm LA/Ao 1.7 LVOT diam 2.0 cm LVOT area 3.1 cm\S\2 LVAd ap4 56.7 cm\S\2 LVLd ap4 10.0 cm EDV(MOD-sp4) 260.9 ml EDV(sp4-el) 272.9 ml LVAs ap4 48.1 cm\S\2 LVLs ap4 8.6 cm ESV(MOD-sp4) 218.9 ml ESV(sp4-el) 228.0 ml EF(MOD-sp4) 16.1 % EF(sp4-el) 16.5 % LVAd ap2 59.0 cm\S\2 LVLd ap2 9.4 cm EDV(MOD-sp2) 306.1 ml EDV(sp2-el) 314.8 ml LVAs ap2 50.4 cm\S\2 LVLs ap2 9.0 cm ESV(MOD-sp2) 236.0 ml ESV(sp2-el) 240.8 ml EF(MOD-sp2) 22.9 % EF(sp2-el) 23.5 % LVLd %diff -6.48 % EDV(MOD-bp) 295.6 ml LVLs %diff 4.0 % ESV(MOD-bp) 232.9 ml EF(MOD-bp) 21.2 % SV(MOD-sp4) 42.0 ml SI(MOD-sp4) 21.7 ml/m\S\2 SV(MOD-sp2) 70.1 ml SI(MOD-sp2) 36.2 ml/m\S\2 SV(MOD-bp) 62.7 ml SI(MOD-bp) 32.4 ml/m\S\2 SV(sp4-el) 44.9 ml SI(sp4-el) 23.2 ml/m\S\2 SV(sp2-el) 73.9 ml SI(sp2-el) 38.2 ml/m\S\2 Doppler Measurements and Calculations MV E max codey 88.6 cm/sec MV P1/2t max codey 115.6 cm/sec MV P1/2t 67.5 msec MVA(P1/2t) 3.3 cm\S\2 MV dec slope 502.0 cm/sec\S\2 MV dec time 0.14 sec Ao V2 max 73.3 cm/sec Ao max PG 2.2 mmHg Ao max PG (full) 1.4 mmHg ZIGGY(V,A) 1.9 cm\S\2 ZIGGY(V,D) 1.9 cm\S\2 LV V1 max PG 0.79 mmHg LV V1 max 44.4 cm/sec PA V2 max 75.9 cm/sec PA max PG 2.3 mmHg TR max codey 229.9 cm/sec
--- NOTE | 2016-12-02 19:08 | NEPHROLOGY CONSULTATION ---
DATE OF CONSULTATION: 12/02/2016 ATTENDING OF RECORD: Dr. Keith. REASON FOR CONSULTATION: BRANDI. HISTORY OF PRESENT ILLNESS: This is a 71-year-old male with CKD stage IV with baseline creatinine in the low 2s with underlying hypertension and congestive heart failure with pacemaker/defibrillator who has been feeling weak and tired for the past several weeks with lower blood pressures. The patient was getting routine pre-office lab work and found his kidney function to be significantly worse and was told to come into the hospital. In the hospital, creatinine was 5.37 with a BUN of 115. Patient was started on IV fluids and diuretics were held. Blood pressure was in the low 100s. The patient this afternoon is feeling much better; put out 2.4 liters in and had 2.8 liters in. Weight is about 84 kilograms. PAST MEDICAL HISTORY: Heart disease status post stent, diabetes, hyperlipidemia, CKD stage IV, baseline creatinine in the low 2s, hypertension, congestive heart failure. PAST SURGICAL HISTORY: CABG, stent placement, pacemaker/AICD. FAMILY HISTORY: Significant for heart disease. SOCIAL HISTORY: Former smoker. No alcohol use. No drugs. Lives at home with . REVIEW OF SYSTEMS: Positive fatigue. Positive weakness. No shortness of breath, no chest pain, no nausea, vomiting, no abdominal pain, no diarrhea or constipation. No dysuria. No itching. No rash. No blurry vision. All other review of systems otherwise negative. Just was feeling fatigued mostly. CURRENT MEDICATIONS: Aspirin 81 mg daily, Lipitor 20 mg daily, Plavix 75 mg daily, Imdur 30 mg daily, vitamin D 2000 units p.o. b.i.d., sliding scale insulin, heparin 5000 units subQ q.12, normal saline with 20 of potassium at 100 mL an hour, Coreg 25 mg p.o. b.i.d. PHYSICAL EXAMINATION VITAL SIGNS: Temperature 36.8, pulse 79, respiratory rate 18, blood pressure 141/69, satting 99% on room air. GENERAL: Awake, alert, oriented x3. EYES: No scleral icterus. NECK: Supple. PULMONARY: Clear to auscultation. CARDIAC: Regular rate and rhythm. ABDOMEN: Bowel sounds positive, soft, nontender. EXTREMITIES: No clubbing, cyanosis or edema. NEUROLOGICALLY: Nonfocal. DERM: No rash or ulcers noted. LABORATORY DATA: Sodium is 139, potassium is 3, chloride is 94, bicarbonate is 34, BUN is 109, creatinine is 4.37, glucose 98. Hemoglobin A1c is 8, calcium is 8.7. Mag is 1.8. Troponin 0.5. Chest x-ray shows cardiomegaly with defibrillator, no evidence of congestive heart failure. UA is bland with trace blood, 0-4 RBCs, specific gravity 1.009, pH 6.5. White count 8.9, H&H 11 and 35, platelet count is 219. INR is 1.2. IMPRESSION AND PLAN: 1. Acute kidney injury on chronic kidney disease stage IV, in the setting of volume depletion. The patient is feeling better with diuretics on hold and getting IV fluids. Appears to be tolerating them well, urinating well and creatinine is slowly trending down. No signs of volume overload. Greatly appreciate cardiology help. Echo was done which shows an EF of 15-20%, systolic function is severely reduced, moderate TR, mild MR, atrium is moderately dilated, RV systolic function mild to moderately reduced. Would continue the current IV fluids. Cardiology evaluated the patient. There is a question of a fractured atrial lead and the patient's multiple diuretics including furosemide, spironolactone and metolazone as well as lisinopril all were held. The patient is to follow up with his outpatient maintenance truck driver after discharge. For now, continue IV fluids looking for signs of volume overload. 2. Hypokalemia. There is potassium in IV fluids and repleting potassium p.r.n.. Will follow the potassium levels. When the creatinine is below 3 will likely to stop the IV fluids and consider restarting diuretics at a lower dose and following blood pressure volume status closely as an outpatient. I appreciate consultation. RENAE
[2016-12-03 04:01] VITALS: BP 104/60; PULSE 62; TEMP 36.6; O2SAT 95
[2016-12-03] MEDS: NSS + 20MEQ KCL 1000ML 1,000 ML IV SCH (04:12)
[2016-12-03 06:46] LABS: BASO % 0.3 %; BASO ABS # 0.02 K/uL (0-0.2); COMPLETE YES; EOS % 3.1 %; HEMATOCRIT 32.3 % (42-52); IG% 0.1 %; LYMPH ABS # 1.37 K/uL (1.2-3.4); MEAN CELL VOLUME 81.6 fL (80-100); MEAN CORPUSCULAR HEMOGLOBIN 27.5 pg (25-34); MEAN CORPUSCULAR HGB CONC 33.7 g/dl (32-36); MEAN PLATELET VOLUME 11.6 fL (7.4-10.4); MONO % 7.8 %; NEUT % 69.7 %; PLATELET COUNT 167 K/uL (130-400); RED BLOOD COUNT 3.96 M/uL (4.7-6.1); WHITE BLOOD COUNT 7.21 K/uL (4.8-10.8)
[2016-12-03 07:21] LABS: BUN/CREATININE RATIO 28.8 (10-20); CALCIUM 8.4 mg/dl (8.5-10.1); CREATININE 2.75 mg/dl (0.60-1.40); MAGNESIUM 1.7 mg/dl (1.8-2.4); POTASSIUM 3.3 mmol/L (3.5-5.1)
[2016-12-03] MEDS: NovoLOG INSULIN PUMP SCH ×4 (07:33→21:12)
[2016-12-03] MEDS ORDERED: MAGNESIUM SULFATE 1GM / D5W 1 GM in PREMIXED IN D5W 100 ML IV ONE (08:00)
[2016-12-03] MEDS ORDERED: POTASSIUM CHLORIDE 10 MEQ TABCR PO ONE (08:00)
[2016-12-03] MEDS: CARVEDILOL 25 MG TAB PO SCH ×2 (08:11→21:12)
[2016-12-03] MEDS: CLOPIDOGREL BISULFATE 75 MG TAB PO SCH (08:11)
[2016-12-03] MEDS: ASPIRIN 81 MG ECTAB PO SCH (08:11)
[2016-12-03] MEDS: ISOSORBIDE MONONITRATE 30 MG TABCR PO SCH (08:11)
[2016-12-03 08:12] VITALS: BP 113/65; PULSE 63; TEMP 36.9; O2SAT 94
[2016-12-03] MEDS: ATORVASTATIN 20 MG TAB PO SCH (08:12)
[2016-12-03] MEDS: CHOLECALCIFEROL 1000 INTER.UNIT TAB PO SCH ×2 (08:12→21:12)
--- NOTE | 2016-12-03 09:01 | Nephrology Progress Note ---
Nephrology Progress Note Date of Service: Dec 03, 2016. Subjective This is a 71-year-old male with CKD stage IV with baseline creatinine in the low 2s with underlying HTN with pacemaker/defibrillator who was admitted for BRANDI after high diuretics for CHF. Creatinine peaked at 5.37. Diuretics were held and patient was started on IV fluids. Today patient states that he is doing well. Denies any SOB, chest pain, edema, confusion, diarrhea, constipation or nausea. Getting supplemented for hypomagnesemia and hypokalemia. With good urine output and appetite. Objective Date Time Temp Pulse Resp B/P (MAP) Pulse Ox O2 Delivery O2 Flow Rate FiO2 12/03/16 08:12 36.9 63 18 113/65 (81) 94 Room Air 12/03/16 04:01 36.6 62 17 104/60 (75) 95 Room Air 12/03/16 04:00 Room Air 12/03/16 00:00 Room Air 12/02/16 23:49 36.4 60 20 101/62 (75) 98 12/02/16 20:53 68 108/66 (80) 12/02/16 20:00 98 Room Air 12/02/16 19:22 36.7 59 20 93/51 (65) 98 Room Air 12/02/16 16:00 Room Air 12/02/16 16:00 36.6 63 20 100/56 (71) 96 Room Air 12/02/16 12:00 Room Air 12/02/16 11:55 36.8 79 18 141/69 (93) 99 Physical Exam: GENERAL: Awake, alert, oriented x3. EYES: No scleral icterus. NECK: Supple. PULMONARY: Clear to auscultation. CARDIAC: Regular rate and rhythm. ABDOMEN: Bowel sounds positive, soft, nontender. EXTREMITIES: No clubbing, cyanosis or edema. NEUROLOGICALLY: Nonfocal. DERM: No rash or ulcers noted. Current Inpatient Medications Medications (Trade) Dose Ordered Sig/Ilene Route Start Time Stop Time Status Last Admin Dose Admin Heparin Sodium (Porcine) (Heparin Sq 5000 Unit/0.5ml) 5,000 unit Q12H SQ 12/01/16 22:00 12/31/16 21:59 12/02/16 21:42 5,000 UNIT Acetaminophen (Tylenol Tab) 650 mg Q4H PRN PO 12/01/16 21:00 12/31/16 20:59 Ondansetron HCl (Zofran Inj) 4 mg Q6H PRN IV 12/01/16 21:00 12/31/16 20:59 Nitroglycerin (Nitrostat Tab) 0.4 mg UD PRN SL 12/01/16 21:00 12/31/16 20:59 Aspirin (Ecotrin Tab) 81 mg DAILY PO 12/02/16 09:00 01/01/17 08:59 12/03/16 08:11 81 MG Atorvastatin Calcium (Lipitor Tab) 20 mg DAILY PO 12/02/16 09:00 01/01/17 08:59 12/03/16 08:12 20 MG Carvedilol (Coreg Tab) 25 mg BID PO 12/01/16 21:00 12/31/16 20:59 12/03/16 08:11 25 MG Clopidogrel Bisulfate (plAVix TAB) 75 mg DAILY PO 12/02/16 09:00 01/01/17 08:59 12/03/16 08:11 75 MG Isosorbide Mononitrate (Imdur Ext Rel Tab) 30 mg QAM PO 12/02/16 09:00 01/01/17 08:59 12/03/16 08:11 30 MG Cholecalciferol (Vitamin D Tab) 2,000 inter.unit BID PO 12/02/16 09:00 01/01/17 08:59 12/03/16 08:12 2,000 INTER.UNIT Miscellaneous Information (Order Awaiting Action) 1 ea QS N/A 12/02/16 00:00 01/01/17 00:00 Insulin Aspart (novoLOG INSULIN PUMP) 1 ea ACHS N/A 12/02/16 07:00 01/01/17 06:59 12/03/16 07:33 1 EA Insulin Aspart (novoLOG ASPART) SLIDING SCALE PRN PRN SC 12/01/16 22:15 12/31/16 22:14 Glucose (Glucose 40% Gel) UD PRN PO 12/01/16 22:15 12/31/16 22:14 Glucose (Glucose Chew Tab) 1 tabs UD PRN PO 12/01/16 22:15 12/31/16 22:14 Glucagon (Glucagon Inj) 1 mg UD PRN SQ 12/01/16 22:15 12/31/16 22:14 Dextrose (Dextrose 50% 50ML Syringe) 50 ml UD PRN IV 12/01/16 22:15 12/31/16 22:14 Magnesium Sulfate 1 gm/Prmx 100 ml @ 100 mls/hr 0800 ONCE IV 12/03/16 08:00 12/03/16 08:59 12/03/16 08:10 100 MLS/HR Last 24 Hours Test 12/02/16 11:08 12/02/16 13:02 12/02/16 16:35 12/02/16 20:37 Bedside Glucose 130 mg/dl 126 mg/dl 105 mg/dl Total Creatine Kinase 396 U/L Creatine Kinase MB 6.9 ng/ml Creatine Kinase MB Ratio 1.7 Troponin I 0.561 ng/ml Test 12/03/16 04:24 12/03/16 04:54 12/03/16 06:23 12/03/16 06:31 Bedside Glucose 69 mg/dl 108 mg/dl 74 mg/dl White Blood Count 7.21 K/uL Red Blood Count 3.96 M/uL Hemoglobin 10.9 g/dL Hematocrit 32.3 % Mean Corpuscular Volume 81.6 fL Mean Corpuscular Hemoglobin 27.5 pg Mean Corpuscular Hemoglobin Concent 33.7 g/dl Platelet Count 167 K/uL Mean Platelet Volume 11.6 fL Neutrophils (%) (Auto) 69.7 % Lymphocytes (%) (Auto) 19.0 % Monocytes (%) (Auto) 7.8 % Eosinophils (%) (Auto) 3.1 % Basophils (%) (Auto) 0.3 % Neutrophils # (Auto) 5.03 K/uL Lymphocytes # (Auto) 1.37 K/uL Monocytes # (Auto) 0.56 K/uL Eosinophils # (Auto) 0.22 K/uL Basophils # (Auto) 0.02 K/uL RDW Standard Deviation 48.9 fL RDW Coefficient of Variation 16.2 % Immature Granulocyte % (Auto) 0.1 % Immature Granulocyte # (Auto) 0.01 K/uL Sodium Level 141 mmol/L Potassium Level 3.3 mmol/L Chloride Level 102 mmol/L Carbon Dioxide Level 33 mmol/L Anion Gap 6.0 mmol/L Blood Urea Nitrogen 79 mg/dl Creatinine 2.75 mg/dl Est Creatinine Clear Calc Drug Dose 25.7 ml/min Estimated GFR () 26.1 Estimated GFR (Non- 22.5 BUN/Creatinine Ratio 28.8 Random Glucose 74 mg/dl Calcium Level 8.4 mg/dl Magnesium Level 1.7 mg/dl Assessment & Plan BRANDI on CKD stage IV in the setting of volume depletion. Tolerating IV fluids and creatinine is improved to 2.75 today. Patient does not seem fluid overloaded today. Goal of care is to balance CO with CKD and maintain volume status as best as possible. will stop the iv fluids today. will defer to Cardiology for restarting diuretics. Will continue to follow as outpatient. Hypokalemia. There is potassium in IV fluids and repleting potassium prn. last k improved to 3.3. will continue to follow. Hypomagnesemia: Last mag improved to 1.7. continue to replete and follow. This patient was seen and treated with direct collaboration with Dr. Lujan. Thank you for the opportunity to participate in this patient's care. Appreciate the Consult. ATTENDING NOTE: I performed a history and physical examination of the patient, including specifically on history- no sob, on physical exam-lungs cta, and my impression and plan are [id number] will need to restart diuretics at a lower dose and follow bmp serially as an outpatient. I have discussed the patient's management with Rosario Mcmanus PA-C, Please refer to above note for the documented findings and plan of care. Cj Lujan DO
[2016-12-03] MEDS: HEPARIN SOD 5000 UNIT/0.5 ML CARP SQ SCH ×2 (10:30→21:16)
[2016-12-03 11:20] VITALS: Ht 167.6 cm; Wt 86.5 kg
--- NOTE | 2016-12-03 11:40 | Progress Note ---
Internal Med Progress Note Date of Service: Dec 03, 2016. Provider Documentation: SUBJECTIVE: Seen and examined at bedside States feeling better today Denies Chest pain, SOB, dizziness Offers no complaints OBJECTIVE: Vital Signs-as noted below Physical Exam: General Appearance:Moderately built and nourished, no apparent distress Head: normocephalic, Atraumatic Eyes: normal inspection, EOMI, PERRL Neck: supple, Trachea midline Respiratory/Chest: Decreased breath sounds, CTA Cardiovascular: S1, S2, No murmur Abdomen/GI:Soft, Non tender, Bowel sounds present Extremities/Musculoskelatal:normal inspection, no edema Neurologic/Psych:AAOX3, grossly no focal neurological deficits Skin: normal color, warm Lab data as noted below. ASSESSMENT & PLAN: Patient is a 71 yr male male, who presents with ongoing low blood pressure and found to have acute renal failure. BRANDI on CKD IV Baseline cr: around 2.3. Cr:2.75 today Hold his Lasix ,Aldactone,lisinopril and metolazone for now Cautious with IV fluids given CHF Appreciate Nephrology Input Advised to drink more fluid and will monitor fluid status Hypokalemia/Hypomagnesemia Likely secondary to Diuretics Replace and monitor Elevated troponin, the patient is asymptomatic. Doubt ACS Likely secondary to BRANDI Appreciate Cardiology Input Chronic systolic congestive heart failure Ejection fraction of around 15-20% with mild elevation in troponin. ECHO as below Diuretics held for now. Need to decrease dose upon discharge S/P Pacemaker: ? device malfunction. Interrogation reveals elevated atrial lead impedances, ? fractured atrial lead. Discontinuation of fenofibrate secondary to renal dysfunction Needs follow up with Dr. Fowler, Sales Advisor at [facility] on January. Appreciate Cardiology Input H/O CAD S/P CABG Continue aspirin, Plavix, Coreg, Lipitor, Imdur H/O hypotension. Holding lisinopril and diuretics. Continue Coreg with holding parameters monitor Hyperlipidemia. Continue statin. DM II: on insulin pump which we will continue. HbA1c levels:8.0. ISS DVT Px; heparin subQ. DISPOSITION To be determined PROCEDURES: ECHO: * The left ventricle is moderately dilated. * Left ventricular systolic function is severely reduced. * Ejection Fraction = 15-20%. * The right ventricle is mild to moderately dilated. * The right ventricular systolic function is mild to moderately reduced. * The left atrium is moderately dilated. * The right atrium is mild to moderately dilated. * There is mild mitral regurgitation. * There is moderate tricuspid regurgitation. * There is a pacemaker lead in the right ventricle. Vital Signs: Date Time Temp Pulse Resp B/P (MAP) Pulse Ox O2 Delivery O2 Flow Rate FiO2 12/03/16 08:12 36.9 63 18 113/65 (81) 94 Room Air 12/03/16 08:00 Room Air 12/03/16 04:01 36.6 62 17 104/60 (75) 95 Room Air 12/03/16 04:00 Room Air 12/03/16 00:00 Room Air 12/02/16 23:49 36.4 60 20 101/62 (75) 98 12/02/16 20:53 68 108/66 (80) 12/02/16 20:00 98 Room Air 12/02/16 19:22 36.7 59 20 93/51 (65) 98 Room Air 12/02/16 16:00 Room Air 12/02/16 16:00 36.6 63 20 100/56 (71) 96 Room Air Lab Results: Results Past 24 Hours Test 12/02/16 13:02 12/02/16 16:35 12/02/16 20:37 12/03/16 04:24 Range/Units Total Creatine Kinase 396 39-308 U/L Creatine Kinase MB 6.9 0.5-3.6 ng/ml Creatine Kinase MB Ratio 1.7 0-3.0 Troponin I 0.561 0-0.045 ng/ml Bedside Glucose 126 105 69 70-99 mg/dl Test 12/03/16 04:54 12/03/16 06:23 12/03/16 06:31 12/03/16 11:14 Range/Units Bedside Glucose 108 74 98 70-99 mg/dl White Blood Count 7.21 4.8-10.8 K/uL Red Blood Count 3.96 4.7-6.1 M/uL Hemoglobin 10.9 14.0-18.0 g/dL Hematocrit 32.3 42-52 % Mean Corpuscular Volume 81.6 80-100 fL Mean Corpuscular Hemoglobin 27.5 25-34 pg Mean Corpuscular Hemoglobin Concent 33.7 32-36 g/dl Platelet Count 167 130-400 K/uL Mean Platelet Volume 11.6 7.4-10.4 fL Neutrophils (%) (Auto) 69.7 % Lymphocytes (%) (Auto) 19.0 % Monocytes (%) (Auto) 7.8 % Eosinophils (%) (Auto) 3.1 % Basophils (%) (Auto) 0.3 % Neutrophils # (Auto) 5.03 1.4-6.5 K/uL Lymphocytes # (Auto) 1.37 1.2-3.4 K/uL Monocytes # (Auto) 0.56 0.11-0.59 K/uL Eosinophils # (Auto) 0.22 0-0.5 K/uL Basophils # (Auto) 0.02 0-0.2 K/uL RDW Standard Deviation 48.9 36.4-46.3 fL RDW Coefficient of Variation 16.2 11.5-14.5 % Immature Granulocyte % (Auto) 0.1 % Immature Granulocyte # (Auto) 0.01 0.00-0.02 K/uL Sodium Level 141 136-145 mmol/L Potassium Level 3.3 3.5-5.1 mmol/L Chloride Level 102 98-107 mmol/L Carbon Dioxide Level 33 21-32 mmol/L Anion Gap 6.0 3-11 mmol/L Blood Urea Nitrogen 79 7-18 mg/dl Creatinine 2.75 0.60-1.40 mg/dl Est Creatinine Clear Calc Drug Dose 25.7 ml/min Estimated GFR () 26.1 Estimated GFR (Non- 22.5 BUN/Creatinine Ratio 28.8 10-20 Random Glucose 74 70-99 mg/dl Calcium Level 8.4 8.5-10.1 mg/dl Magnesium Level 1.7 1.8-2.4 mg/dl
--- NOTE | 2016-12-03 13:10 | CARDIOLOGY PROGRESS NOTE ---
DATE: 12/03/2016 FOLLOW-UP VISIT DATE: 12/03/2016 SUBJECTIVE: The patient is a 71-year-old male who receives his cardiac care through the cardiology group in [place]. He has chronic renal failure and is followed by Dr. Lujan. He was admitted with worsening renal failure and hypokalemia, most likely due to dehydration from diuretics. He was given IV fluids and his potassium was corrected. The patient had his diuretics held. He has no complaints today. OBJECTIVE: GENERAL: He is alert and oriented. Comfortably sitting in a chair. VITAL SIGNS: Blood pressure 130/60, pulse is regular at 87. He is afebrile. HEAD, EYES, EARS, NOSE, AND THROAT: He is normocephalic. Pupils are equal and reactive to light. Extraocular muscles are intact bilaterally. NECK: The neck veins are flat. Carotids have good upstrokes bilaterally without bruits. Thyroid is nonpalpable. RESPIRATORY: Breath sounds equal bilaterally and clear to auscultation. CARDIOVASCULAR: Heart has a regular rhythm. Normal S1, S2. No S3, S4. No cardiac rubs or murmurs. GASTROINTESTINAL: Abdomen is soft, nontender without organomegaly. EXTREMITIES: Free of edema, digit clubbing, or cyanosis. NEUROLOGIC: Grossly intact. SKIN: Warm to touch. LYMPH NODES: Negative to palpation. LABORATORY DATA: Creatinine is 2.75. Potassium is 3.3. IMPRESSION: 1. Ischemic cardiomyopathy. 2. Implantable cardioverter defibrillator implant. 3. Chronic renal failure. RECOMMENDATIONS: The patient's IV fluid was discontinued today by the shake cutter. We will start to add back his diuretics. We will start Lasix 80 mg daily and Aldactone 25 mg daily, which he was taking at home. He was also taking Zaroxolyn 2.5 mg daily. I think we should hold this until we see how he does as an outpatient. He can always be added back even on a weekly or every other or third day. Otherwise, the patient is stable and he could be discharged per the medicine service and have followup with his ui application developer in [place].
[2016-12-03 15:32] VITALS: BP 113/68; PULSE 84; TEMP 36.6; O2SAT 94
[2016-12-03 19:25] VITALS: BP 106/70; PULSE 60; TEMP 36.8; O2SAT 96
[2016-12-03 23:26] VITALS: BP 115/74; PULSE 66; TEMP 36.8; O2SAT 93
[2016-12-04 03:29] VITALS: BP 113/68; PULSE 68; TEMP 36.6; O2SAT 90
[2016-12-04] MEDS: NovoLOG INSULIN PUMP SCH ×4 (07:00→20:43)
[2016-12-04 07:24] LABS: BASO % 0.3 %; BASO ABS # 0.04 K/uL (0-0.2); COMPLETE YES; EOS % 0.8 %; HEMATOCRIT 34.2 % (42-52); IG% 0.5 %; LYMPH ABS # 1.31 K/uL (1.2-3.4); MEAN CELL VOLUME 81.6 fL (80-100); MEAN CORPUSCULAR HEMOGLOBIN 27.2 pg (25-34); MEAN CORPUSCULAR HGB CONC 33.3 g/dl (32-36); MEAN PLATELET VOLUME 11.9 fL (7.4-10.4); MONO % 5.1 %; NEUT % 83.3 %; PLATELET COUNT 199 K/uL (130-400); RED BLOOD COUNT 4.19 M/uL (4.7-6.1); WHITE BLOOD COUNT 13.09 K/uL (4.8-10.8)
[2016-12-04 07:43] VITALS: BP 109/61; PULSE 69; TEMP 37; O2SAT 97
[2016-12-04 07:59] LABS: BUN/CREATININE RATIO 24.6 (10-20); CREATININE 2.4 mg/dl (0.60-1.40); MAGNESIUM 1.8 mg/dl (1.8-2.4); POTASSIUM 3.3 mmol/L (3.5-5.1)
[2016-12-04] MEDS ORDERED: POTASSIUM CHLORIDE 10 MEQ TABCR PO STA (09:46)
[2016-12-04] MEDS: FUROSEMIDE 80 MG TAB PO SCH (09:57)
[2016-12-04] MEDS: CLOPIDOGREL BISULFATE 75 MG TAB PO SCH (09:57)
[2016-12-04] MEDS: ISOSORBIDE MONONITRATE 30 MG TABCR PO SCH (09:57)
[2016-12-04] MEDS: ASPIRIN 81 MG ECTAB PO SCH (09:57)
[2016-12-04] MEDS: CHOLECALCIFEROL 1000 INTER.UNIT TAB PO SCH ×2 (09:57→21:04)
[2016-12-04] MEDS: SPIRONOLACTONE 25 MG TAB PO SCH (09:58)
[2016-12-04] MEDS: CARVEDILOL 25 MG TAB PO SCH ×2 (09:58→20:42)
[2016-12-04] MEDS: ATORVASTATIN 20 MG TAB PO SCH (09:58)
[2016-12-04] MEDS: HEPARIN SOD 5000 UNIT/0.5 ML CARP SQ SCH ×2 (10:00→20:44)
[2016-12-04 11:37] VITALS: BP 93/56; PULSE 61; TEMP 37.2; O2SAT 100
--- NOTE | 2016-12-04 12:51 | Progress Note ---
Internal Med Progress Note Date of Service: Dec 04, 2016. Provider Documentation: SUBJECTIVE: The patient was seen and examined Admitted with Acute on Chronic Renal failure Denies any symptoms but has had SOB last evening -better this morning Clinically a lot better -wants to go home OBJECTIVE: Vital Signs-as noted below Exam: General-No distress at rest Eyes-normal ENT-normal Neck-Supple Lungs-Clear to ausucltate bilaterally Heart-Regular,no murmur Abdomen-Benign,no masses,bowel sound present Extremities-No edema Neuro-AAOx3 NO focal neuro deficit Lab data as noted below. ASSESSMENT & PLAN: This is a 71-year-old male, who presents with ongoing low blood pressure and found to have acute renal failure. Acute renal failure and chronic kidney disease stage 4; Baseline creatinine around 2.3. He presented with outpatient labs creatinine of 6 and in the ER creatinine was 5.3. Hold his Lasix ,Aldactone,lisinopril and metolazone Received IV normal saline at 100 mL per hour for now. Nephrology consulted-appreciate Input . Creatinine is lot better now Restarted back on Diuretics except Metolazone Hypokalemia. We will replace. Likely secondary to Diuretics Used to take Potassium as an OP Elevated troponin, the patient is asymptomatic. Doubt any ACS Likely secondary to BRANDI Cardiology consulted-appreciate Input Chronic systolic congestive heart failure Ejection fraction of around 15-20% with mild elevation in troponin. Repeat echocardiogram, holding all the diuretics and place him on IV fluids. Status post pacemaker and question of one of the pacemaker leads malfunctioning; Interrogate pacemaker-done Will need to see his Cardiology as an OP History of coronary artery disease, status post coronary artery bypass grafting and status post stents, we will continue home medications of aspirin, Plavix, Coreg with holding parameters and Lipitor. Follow echocardiogram:: * The left ventricle is moderately dilated. * Left ventricular systolic function is severely reduced. * Ejection Fraction = 15-20%. * The right ventricle is mild to moderately dilated. * The right ventricular systolic function is mild to moderately reduced. * The left atrium is moderately dilated. * The right atrium is mild to moderately dilated. * There is mild mitral regurgitation. * There is moderate tricuspid regurgitation. * There is a pacemaker lead in the right ventricle. History of hypotension. Holding lisinopril and diuretics. Continue Coreg with holding parameters. We will monitor blood pressure. Hyperlipidemia. Continue statin. Diabetes, on insulin pump which we will continue. Follow HbA1c levels. We will also place him on insulin sliding scale. Deep venous thrombosis prophylaxis, heparin subQ. DISPOSITION Likely discharge this afternoon 2 steps before discharge Vital Signs: Date Time Temp Pulse Resp B/P (MAP) Pulse Ox O2 Delivery O2 Flow Rate FiO2 12/04/16 11:37 37.2 61 18 93/56 (68) 100 Nasal Cannula 4.0 12/04/16 08:00 Room Air 12/04/16 07:43 37.0 69 19 109/61 (77) 97 Nasal Cannula 4.0 12/04/16 04:00 Room Air 12/04/16 03:29 36.6 68 18 113/68 (83) 90 12/04/16 00:00 Room Air 12/03/16 23:26 36.8 66 16 115/74 (88) 93 Room Air 12/03/16 20:00 Room Air 12/03/16 19:25 36.8 60 18 106/70 (82) 96 Room Air 12/03/16 16:00 Room Air 12/03/16 15:32 36.6 84 18 113/68 (83) 94 Room Air Lab Results: Results Past 24 Hours Test 12/03/16 16:24 12/03/16 20:15 12/03/16 23:23 12/04/16 06:45 Range/Units Bedside Glucose 101 85 100 80 70-99 mg/dl Test 12/04/16 06:57 12/04/16 11:08 Range/Units White Blood Count 13.09 4.8-10.8 K/uL Red Blood Count 4.19 4.7-6.1 M/uL Hemoglobin 11.4 14.0-18.0 g/dL Hematocrit 34.2 42-52 % Mean Corpuscular Volume 81.6 80-100 fL Mean Corpuscular Hemoglobin 27.2 25-34 pg Mean Corpuscular Hemoglobin Concent 33.3 32-36 g/dl Platelet Count 199 130-400 K/uL Mean Platelet Volume 11.9 7.4-10.4 fL Neutrophils (%) (Auto) 83.3 % Lymphocytes (%) (Auto) 10.0 % Monocytes (%) (Auto) 5.1 % Eosinophils (%) (Auto) 0.8 % Basophils (%) (Auto) 0.3 % Neutrophils # (Auto) 10.91 1.4-6.5 K/uL Lymphocytes # (Auto) 1.31 1.2-3.4 K/uL Monocytes # (Auto) 0.67 0.11-0.59 K/uL Eosinophils # (Auto) 0.10 0-0.5 K/uL Basophils # (Auto) 0.04 0-0.2 K/uL RDW Standard Deviation 48.9 36.4-46.3 fL RDW Coefficient of Variation 16.3 11.5-14.5 % Immature Granulocyte % (Auto) 0.5 % Immature Granulocyte # (Auto) 0.06 0.00-0.02 K/uL Sodium Level 139 136-145 mmol/L Potassium Level 3.3 3.5-5.1 mmol/L Chloride Level 102 98-107 mmol/L Carbon Dioxide Level 27 21-32 mmol/L Anion Gap 10.0 3-11 mmol/L Blood Urea Nitrogen 59 7-18 mg/dl Creatinine 2.40 0.60-1.40 mg/dl Est Creatinine Clear Calc Drug Dose 29.5 ml/min Estimated GFR () 30.7 Estimated GFR (Non- 26.5 BUN/Creatinine Ratio 24.6 10-20 Random Glucose 79 70-99 mg/dl Calcium Level 9.0 8.5-10.1 mg/dl Magnesium Level 1.8 1.8-2.4 mg/dl Bedside Glucose 79 70-99 mg/dl
[2016-12-04 15:33] LABS: BUN/CREATININE RATIO 24.7 (10-20); CALCIUM 9.1 mg/dl (8.5-10.1); CREATININE 2.32 mg/dl (0.60-1.40)
[2016-12-04] MEDS ORDERED: POTASSIUM CHLORIDE 20 MEQ TABCR PO ONE (15:37)
[2016-12-04 16:00] VITALS: BP 110/69; PULSE 56; TEMP 36.5; O2SAT 100
[2016-12-04 19:10] VITALS: BP 114/72; PULSE 62; TEMP 36.8; O2SAT 100
[2016-12-04] MEDS: POTASSIUM CHLORIDE 20 MEQ TABCR PO SCH (20:42)
[2016-12-05 00:07] VITALS: BP 130/76; PULSE 82; TEMP 36.7; O2SAT 100
[2016-12-05 04:45] VITALS: BP 95/60; PULSE 76; TEMP 36.7; O2SAT 94
[2016-12-05] MEDS: NovoLOG INSULIN PUMP SCH ×2 (07:00→11:00)
[2016-12-05 07:32] LABS: HEMATOCRIT 33.1 % (42-52); MEAN CELL VOLUME 82.3 fL (80-100); MEAN CORPUSCULAR HEMOGLOBIN 27.4 pg (25-34); MEAN CORPUSCULAR HGB CONC 33.2 g/dl (32-36); PLATELET COUNT 189 K/uL (130-400); RED BLOOD COUNT 4.02 M/uL (4.7-6.1); WHITE BLOOD COUNT 11.84 K/uL (4.8-10.8)
[2016-12-05] MEDS: POTASSIUM CHLORIDE 20 MEQ TABCR PO SCH (08:03)
[2016-12-05] MEDS: CARVEDILOL 25 MG TAB PO SCH (08:04)
[2016-12-05] MEDS: SPIRONOLACTONE 25 MG TAB PO SCH (08:04)
[2016-12-05 08:05] LABS: BUN/CREATININE RATIO 25.3 (10-20); CREATININE 2.19 mg/dl (0.60-1.40); MAGNESIUM 1.7 mg/dl (1.8-2.4); PHOSPHORUS 2.7 mg/dl (2.5-4.9); POTASSIUM 3.1 mmol/L (3.5-5.1)
[2016-12-05 08:09] VITALS: BP 100/49; PULSE 64; TEMP 37.1; O2SAT 100
[2016-12-05] MEDS ORDERED: POTASSIUM CHLORIDE 10 MEQ TABCR PO STA (08:17)
[2016-12-05] MEDS ORDERED: MAGNESIUM SULFATE 1GM / D5W 1 GM in PREMIXED IN D5W 100 ML IV STA (08:21)
[2016-12-05] MEDS: ASPIRIN 81 MG ECTAB PO SCH (08:29)
[2016-12-05] MEDS: ISOSORBIDE MONONITRATE 30 MG TABCR PO SCH (08:30)
[2016-12-05] MEDS: FUROSEMIDE 80 MG TAB PO SCH (08:30)
[2016-12-05] MEDS: POTASSIUM CHLR 10 MEQ / WTR 10 MEQ in PREMIXED WATER 100 ML IV SCH ×2 (08:31→10:10)
[2016-12-05] MEDS: CHOLECALCIFEROL 1000 INTER.UNIT TAB PO SCH (10:07)
[2016-12-05] MEDS: ATORVASTATIN 20 MG TAB PO SCH (10:07)
[2016-12-05] MEDS: CLOPIDOGREL BISULFATE 75 MG TAB PO SCH (10:07)
[2016-12-05] MEDS: HEPARIN SOD 5000 UNIT/0.5 ML CARP SQ SCH (10:10)
--- NOTE | 2016-12-05 10:28 | Nephrology Progress Note ---
Nephrology Progress Note Date of Service: Dec 05, 2016. Subjective no c/o change in chronic dyspnea, no n/v, no voiding complaints; feels edema well controlled. ongoing hypokalemia Objective Date Time Temp Pulse Resp B/P (MAP) Pulse Ox O2 Delivery O2 Flow Rate FiO2 12/05/16 08:09 37.1 64 19 100/49 (66) 100 Nasal Cannula 2.0 12/05/16 08:06 Room Air 12/05/16 04:49 Nasal Cannula 3.0 12/05/16 04:45 36.7 76 18 95/60 (72) 94 Room Air 12/05/16 00:07 36.7 82 18 130/76 (94) 100 Nasal Cannula 3.0 12/05/16 00:07 Nasal Cannula 3.0 12/04/16 20:30 Nasal Cannula 3.0 12/04/16 19:10 36.8 62 18 114/72 (86) 100 Nasal Cannula 3.5 12/04/16 16:00 36.5 56 18 110/69 (83) 100 12/04/16 16:00 Room Air 12/04/16 12:00 Room Air 12/04/16 11:37 37.2 61 18 93/56 (68) 100 Nasal Cannula 4.0 Physical Exam: GENERAL: Awake, alert, oriented x3. up in chair on 02nc EYES: No scleral icterus. NECK: Supple. PULMONARY: Clear to auscultation. CARDIAC: Regular rate and rhythm. ABDOMEN: Bowel sounds positive, soft, nontender. EXTREMITIES: No clubbing, cyanosis; trace BL ankle edema. NEUROLOGICALLY: Nonfocal. DERM: No rash or ulcers noted. Current Inpatient Medications Medications (Trade) Dose Ordered Sig/Ilene Route Start Time Stop Time Status Last Admin Dose Admin Heparin Sodium (Porcine) (Heparin Sq 5000 Unit/0.5ml) 5,000 unit Q12H SQ 12/01/16 22:00 12/31/16 21:59 12/05/16 10:10 5,000 UNIT Acetaminophen (Tylenol Tab) 650 mg Q4H PRN PO 12/01/16 21:00 12/31/16 20:59 Ondansetron HCl (Zofran Inj) 4 mg Q6H PRN IV 12/01/16 21:00 12/31/16 20:59 Nitroglycerin (Nitrostat Tab) 0.4 mg UD PRN SL 12/01/16 21:00 12/31/16 20:59 Aspirin (Ecotrin Tab) 81 mg DAILY PO 12/02/16 09:00 01/01/17 08:59 12/05/16 08:29 81 MG Atorvastatin Calcium (Lipitor Tab) 20 mg DAILY PO 12/02/16 09:00 01/01/17 08:59 12/05/16 10:07 20 MG Carvedilol (Coreg Tab) 25 mg BID PO 12/01/16 21:00 12/31/16 20:59 12/05/16 08:04 25 MG Clopidogrel Bisulfate (plAVix TAB) 75 mg DAILY PO 12/02/16 09:00 01/01/17 08:59 12/05/16 10:07 75 MG Isosorbide Mononitrate (Imdur Ext Rel Tab) 30 mg QAM PO 12/02/16 09:00 01/01/17 08:59 12/05/16 08:30 30 MG Cholecalciferol (Vitamin D Tab) 2,000 inter.unit BID PO 12/02/16 09:00 01/01/17 08:59 12/05/16 10:07 2,000 INTER.UNIT Miscellaneous Information (Order Awaiting Action) 1 ea QS N/A 12/02/16 00:00 01/01/17 00:00 Insulin Aspart (novoLOG INSULIN PUMP) 1 ea ACHS N/A 12/02/16 07:00 01/01/17 06:59 12/05/16 07:00 1 EA Insulin Aspart (novoLOG ASPART) SLIDING SCALE PRN PRN SC 12/01/16 22:15 12/31/16 22:14 Glucose (Glucose 40% Gel) UD PRN PO 12/01/16 22:15 12/31/16 22:14 Glucose (Glucose Chew Tab) 1 tabs UD PRN PO 12/01/16 22:15 12/31/16 22:14 Glucagon (Glucagon Inj) 1 mg UD PRN SQ 12/01/16 22:15 12/31/16 22:14 Dextrose (Dextrose 50% 50ML Syringe) 50 ml UD PRN IV 12/01/16 22:15 12/31/16 22:14 Furosemide (Lasix Tab) 80 mg QAM PO 12/04/16 09:00 01/03/17 08:59 12/05/16 08:30 80 MG Spironolactone (Aldactone Tab) 25 mg QAM PO 12/04/16 09:00 01/03/17 08:59 12/05/16 08:04 25 MG Potassium Chloride (Klor-Con Tab) 20 meq BID PO 12/04/16 21:00 01/03/17 20:59 12/05/16 08:03 20 MEQ Potassium Chloride 10 meq/ Prmx 100 ml @ 100 mls/hr Q1H IV 12/05/16 09:30 12/05/16 11:29 12/05/16 10:10 100 MLS/HR Last 24 Hours Test 12/04/16 11:08 12/04/16 14:51 12/04/16 16:22 12/04/16 20:20 Bedside Glucose 79 mg/dl 95 mg/dl 74 mg/dl Sodium Level 137 mmol/L Potassium Level 3.0 mmol/L Chloride Level 98 mmol/L Carbon Dioxide Level 30 mmol/L Anion Gap 9.0 mmol/L Blood Urea Nitrogen 57 mg/dl Creatinine 2.32 mg/dl Est Creatinine Clear Calc Drug Dose 30.5 ml/min Estimated GFR () 32.0 Estimated GFR (Non- 27.6 BUN/Creatinine Ratio 24.7 Random Glucose 87 mg/dl Calcium Level 9.1 mg/dl Test 12/05/16 06:40 12/05/16 06:59 Bedside Glucose 90 mg/dl White Blood Count 11.84 K/uL Red Blood Count 4.02 M/uL Hemoglobin 11.0 g/dL Hematocrit 33.1 % Mean Corpuscular Volume 82.3 fL Mean Corpuscular Hemoglobin 27.4 pg Mean Corpuscular Hemoglobin Concent 33.2 g/dl RDW Standard Deviation 49.4 fL RDW Coefficient of Variation 16.3 % Platelet Count 189 K/uL Mean Platelet Volume 12.0 fL Sodium Level 138 mmol/L Potassium Level 3.1 mmol/L Chloride Level 99 mmol/L Carbon Dioxide Level 31 mmol/L Anion Gap 8.0 mmol/L Blood Urea Nitrogen 55 mg/dl Creatinine 2.19 mg/dl Est Creatinine Clear Calc Drug Dose 32.8 ml/min Estimated GFR () 34.3 Estimated GFR (Non- 29.6 BUN/Creatinine Ratio 25.3 Random Glucose 114 mg/dl Calcium Level 9.0 mg/dl Phosphorus Level 2.7 mg/dl Magnesium Level 1.7 mg/dl Assessment & Plan 71-year-old male with CKD stage IV with baseline creatinine in the low 2s with underlying HTN with pacemaker/defibrillator who was admitted for BRANDI after high diuretics for CHF. Creatinine peaked at 5.37. Diuretics were held and patient was started on IV fluids. now back on po diuretics. BRANDI on CKD stage IV in the setting of volume depletion, resolved and creatinine back to baseline in low 2's. agree w/ maintaining on spironolactone 25 daily and lasix 80 daily po Hypokalemia. has been quite low and pt just started on 20 mEq po bid yesterday PM and 40 mEq more in addition to this given today -d/t lower K, recommend checking bmp on Tue/ this coming week at least; may need to be followed w/ this frequency more often Care coordinated w/ Juani Noe.
--- NOTE | 2016-12-05 10:56 | Progress Note ---
Internal Med Progress Note Date of Service: Dec 05, 2016. Provider Documentation: SUBJECTIVE: The patient was seen and examined Admitted with Acute on Chronic Renal failure Denies any symptoms but has had SOB last evening -better this morning Clinically a lot better -wants to go home Denies any symptoms Wants to go home OBJECTIVE: Vital Signs-as noted below Exam: General-No distress at rest Eyes-normal ENT-normal Neck-Supple Lungs-Clear to ausucltate bilaterally Heart-Regular,no murmur Abdomen-Benign,no masses,bowel sound present Extremities-No edema Neuro-AAOx3 NO focal neuro deficit Lab data as noted below. ASSESSMENT & PLAN: This is a 71-year-old male, who presents with ongoing low blood pressure and found to have acute renal failure. Acute renal failure and chronic kidney disease stage 4; Baseline creatinine around 2.3. He presented with outpatient labs creatinine of 6 and in the ER creatinine was 5.3. Hold his Lasix ,Aldactone,lisinopril and metolazone Received IV normal saline at 100 mL per hour for now. Nephrology consulted-appreciate Input . Creatinine is lot better now Restarted back on Diuretics except Metolazone Renal function is back to baseline Discussed with the Financial Services Consultant -will need PRP checked 2 times /week for 2 weeks Hypokalemia. We will replace. Likely secondary to Diuretics Used to take Potassium as an OP Will discharge on Oral potassium Elevated troponin, the patient is asymptomatic. Doubt any ACS Likely secondary to BRANDI Cardiology consulted-appreciate Input Chronic systolic congestive heart failure Ejection fraction of around 15-20% with mild elevation in troponin. Repeat echocardiogram, holding all the diuretics and place him on IV fluids. Status post pacemaker and question of one of the pacemaker leads malfunctioning; Interrogate pacemaker-done Will need to see his Cardiology as an OP History of coronary artery disease, status post coronary artery bypass grafting and status post stents, we will continue home medications of aspirin, Plavix, Coreg with holding parameters and Lipitor. Follow echocardiogram:: * The left ventricle is moderately dilated. * Left ventricular systolic function is severely reduced. * Ejection Fraction = 15-20%. * The right ventricle is mild to moderately dilated. * The right ventricular systolic function is mild to moderately reduced. * The left atrium is moderately dilated. * The right atrium is mild to moderately dilated. * There is mild mitral regurgitation. * There is moderate tricuspid regurgitation. * There is a pacemaker lead in the right ventricle. History of hypotension. Holding lisinopril and diuretics. Continue Coreg with holding parameters. We will monitor blood pressure. BP is controlled Hyperlipidemia. Continue statin. Diabetes, on insulin pump which we will continue. Follow HbA1c levels. We will also place him on insulin sliding scale. Deep venous thrombosis prophylaxis, heparin subQ. DISPOSITION Likely discharge this afternoon 2 steps before discharge Vital Signs: Date Time Temp Pulse Resp B/P (MAP) Pulse Ox O2 Delivery O2 Flow Rate FiO2 12/05/16 08:09 37.1 64 19 100/49 (66) 100 Nasal Cannula 2.0 12/05/16 08:06 Room Air 12/05/16 04:49 Nasal Cannula 3.0 12/05/16 04:45 36.7 76 18 95/60 (72) 94 Room Air 12/05/16 00:07 36.7 82 18 130/76 (94) 100 Nasal Cannula 3.0 12/05/16 00:07 Nasal Cannula 3.0 12/04/16 20:30 Nasal Cannula 3.0 12/04/16 19:10 36.8 62 18 114/72 (86) 100 Nasal Cannula 3.5 12/04/16 16:00 36.5 56 18 110/69 (83) 100 12/04/16 16:00 Room Air 12/04/16 12:00 Room Air 12/04/16 11:37 37.2 61 18 93/56 (68) 100 Nasal Cannula 4.0 Lab Results: Results Past 24 Hours Test 12/04/16 11:08 12/04/16 14:51 12/04/16 16:22 12/04/16 20:20 Range/Units Bedside Glucose 79 95 74 70-99 mg/dl Sodium Level 137 136-145 mmol/L Potassium Level 3.0 3.5-5.1 mmol/L Chloride Level 98 98-107 mmol/L Carbon Dioxide Level 30 21-32 mmol/L Anion Gap 9.0 3-11 mmol/L Blood Urea Nitrogen 57 7-18 mg/dl Creatinine 2.32 0.60-1.40 mg/dl Est Creatinine Clear Calc Drug Dose 30.5 ml/min Estimated GFR () 32.0 Estimated GFR (Non- 27.6 BUN/Creatinine Ratio 24.7 10-20 Random Glucose 87 70-99 mg/dl Calcium Level 9.1 8.5-10.1 mg/dl Test 12/05/16 06:40 12/05/16 06:59 Range/Units Bedside Glucose 90 70-99 mg/dl White Blood Count 11.84 4.8-10.8 K/uL Red Blood Count 4.02 4.7-6.1 M/uL Hemoglobin 11.0 14.0-18.0 g/dL Hematocrit 33.1 42-52 % Mean Corpuscular Volume 82.3 80-100 fL Mean Corpuscular Hemoglobin 27.4 25-34 pg Mean Corpuscular Hemoglobin Concent 33.2 32-36 g/dl RDW Standard Deviation 49.4 36.4-46.3 fL RDW Coefficient of Variation 16.3 11.5-14.5 % Platelet Count 189 130-400 K/uL Mean Platelet Volume 12.0 7.4-10.4 fL Sodium Level 138 136-145 mmol/L Potassium Level 3.1 3.5-5.1 mmol/L Chloride Level 99 98-107 mmol/L Carbon Dioxide Level 31 21-32 mmol/L Anion Gap 8.0 3-11 mmol/L Blood Urea Nitrogen 55 7-18 mg/dl Creatinine 2.19 0.60-1.40 mg/dl Est Creatinine Clear Calc Drug Dose 32.8 ml/min Estimated GFR () 34.3 Estimated GFR (Non- 29.6 BUN/Creatinine Ratio 25.3 10-20 Random Glucose 114 70-99 mg/dl Calcium Level 9.0 8.5-10.1 mg/dl Phosphorus Level 2.7 2.5-4.9 mg/dl Magnesium Level 1.7 1.8-2.4 mg/dl
[2016-12-05 11:35] VITALS: BP 123/71; PULSE 61; TEMP 37.1; O2SAT 95
[2016-12-05 15:13] LABS: BUN/CREATININE RATIO 23.5 (10-20); CALCIUM 9.2 mg/dl (8.5-10.1); CREATININE 2.4 mg/dl (0.60-1.40); MAGNESIUM 2.1 mg/dl (1.8-2.4); POTASSIUM 3.5 mmol/L (3.5-5.1)
[2016-12-05 15:27] VITALS: BP 109/69; PULSE 62; TEMP 36.8; O2SAT 94
[2016-12-05 15:32] VITALS: BP 109/69; PULSE 62; TEMP 36.8; O2SAT 94
[2016-12-05] MEDS ORDERED: MCRK20 PO (15:36)
--- NOTE | 2016-12-05 15:40 | Discharge Instructions ---
Discharge Instructions Date of Service Dec 05, 2016. Admission Reason for Admission: Acute Renal Failure Discharge Discharge Diagnosis / Problem: BRANDI,Systolic heart Failure,CAD,Cardiomyopathy Discharge Goals Goal(s): Prevent Disease Progression Activity Recommendations Activity Limitations: resume your previous activity . Instructions / Follow-Up Instructions / Follow-Up Dr Garzon on 12/08/16 at 12:[address] PRP on Tue and -for 2 weeks, and report to Dr Lujan/Albert.Please keep appointment with your Outside Installation Machinist. Current Hospital Diet Patient's current hospital diet: AHA Diet (Heart Healthy), Diabetes Type 2 Diet Discharge Diet Recommended Diet: AHA Diet (Heart Healthy), Low Sodium Diet (2gm Na), Diabetes Type 2 Diet Fluid Restriction: 1500 ml (6 cups) Pending Studies Studies pending at discharge: no Laboratory Results Hemoglobin A1c Test 12/02/16 05:07 Range/Units Estimated Average Glucose 183 mg/dl Hemoglobin A1c 8.0 H 4.5-5.6 % Medical Emergencies . Who to Call and When: Medical Emergencies: If at any time you feel your situation is an emergency, please call 911 immediately. . Non-Emergent Contact Non-Emergency issues call your: Primary Care Provider . Past History Medical & Surgical History: (1) Systolic CHF (2) Acute renal failure (3) Elevated troponin (4) Heart disease (5) Pacemaker (6) HTN (hypertension) (7) Diabetes . "Provider Documentation" section prepared by Juan Keith. . VTE Core Measure Inpt VTE Proph given/why not?: Unfractionated heparin SQ
--- NOTE | 2016-12-06 07:27 | Discharge Summary ---
Discharge Summary Date of Service Dec 06, 2016. Discharge Summary Admission Date: Dec 01, 2016 at 20:57 Discharge Date: Dec 05, 2016 Discharge Disposition: Home Principal Diagnosis: BRANDI,Systolic heart Failure,CAD,Cardiomyopathy Secondary Diagnoses/Problems: Please see H&P and Hospital Progress note Consultations: Cardiology and Nephrology Medication Reconciliation New Medications: Potassium Chloride (Klor-Con M20) 20 Meq Tabcr 20 MEQ PO BID for 30 Days, #60 Continued Medications: Aspirin (Aspirin Ec) 81 Mg Tab 81 MG PO DAILY Atorvastatin (Lipitor) 20 Mg Tab 20 MG PO DAILY, TAB Carvedilol (Coreg) 25 Mg Tab 25 MG PO BID, TAB Cholecalciferol (Vitamin D3) 2,000 Unit Cap 2 CAP PO DAILY, CAP Choline Fenofibrate (Trilipix) 135 Mg Cap 1 CAP PO DAILY, CAP Clopidogrel (Plavix) 75 Mg Tab 75 MG PO DAILY, TAB Fish Oil (Maybee-3) 1 Ea Cap 1 CAP PO DAILY, CAP Furosemide (Lasix) 80 Mg Tab 80 MG PO DAILY, TAB Insulin Aspart (novoLOG INSULIN PUMP ) 1 Ea Inj 1 EA N/A UD Isosorbide Mononitrate Ext Rel (Imdur Ext Rel) 30 Mg Ertab 30 MG PO QAM, TAB Spironolactone (Aldactone) 25 Mg Tab 25 MG PO DAILY, TAB Discontinued Medications: Lisinopril (Zestril) 40 Mg Tab 40 MG PO DAILY, TAB Metolazone (Zaroxolyn) 2.5 Mg Tab 2.5 MG PO DAILY, TAB Admission Information HPI (per Admitting provider): DATE OF ADMISSION: 12/01/2016 CHIEF COMPLAINT: Abnormal labs. HISTORY OF PRESENT ILLNESS: This is a 71-year-old male with a past medical history significant for CAD status post stent, diabetes, hyperlipidemia, chronic kidney disease stage 4, hypertension, systolic CHF status post pacemaker and defibrillator comes to ER as outpatient routine labs showed his creatinine was elevated and advised to come to the hospital. The patient says since the last 2 weeks his blood pressure is running low and also his recent pacemaker checkup showed one of the leads was malfunctioning and supposed to get it fixed on November 26. He follows with cardiology at [facility]. He is feeling somewhat weak and tired, but denies any headaches, no blurred vision. Has occasional dizziness. No runny nose, no cough, no sore throat and no difficulty swallowing. No chest pain, no shortness of breath, no nausea, no vomiting and no abdominal pain. Normal bowel and bladder movements. Appetite is okay. No blood in the stool, no blood in the urine. No skin rash. No swelling in the legs. Currently, he is resting comfortably and hemodynamically stable. ALLERGIES: No known drug allergies. PAST MEDICAL HISTORY: As mentioned above. PAST SURGICAL HISTORY: CABG, left heart catheterization and pacemaker insertion. MEDICATIONS: The patient is on insulin pump, Lasix 80 mg p.o. daily, Lipitor 20 mg p.o. daily, Coreg 25 mg p.o. b.i.d., Imdur 30 mg p.o. daily, nitroglycerin 0.4 mg sublingual p.r.n., lisinopril 40 mg p.o. daily, spironolactone 25 mg p.o. daily, fenofibrate 135 mcg p.o. daily, Zaroxolyn 2.5 mg p.o. daily, aspirin 81 mg p.o. daily, cholecalciferol 1000 mg p.o. daily, Plavix 75 mg p.o. daily and omega-3 one gram p.o. daily. FAMILY HISTORY: Significant for father and mother who had heart disease. SOCIAL HISTORY: Former smoker, smoked for 10 years. No alcohol use. No drug use. . REVIEW OF SYMPTOMS: As per HPI. Rest of review of systems is negative. PHYSICAL EXAMINATION: GENERAL: The patient is of moderate build, not in distress. VITAL SIGNS: Temperature 36.8, pulse 69, respiratory rate 19, blood pressure 113/56 and oxygen 94% room air. HEENT: No pallor, no icterus. Pupils are equal, round and reactive to light. NECK: No JVD, no neck masses, no carotid bruits. CARDIOVASCULAR: S1, S2 heard. Regular rate and rhythm. No murmur, no gallop. RESPIRATORY SYSTEM: Normal AP diameter. No accessory muscle use. No wheezing, no crackles. ABDOMEN: Soft, bowel sounds are present. Nontender. No distention. CENTRAL NERVOUS SYSTEM: Cranial nerves II-XII are grossly intact. Nonfocal. EXTREMITIES: No edema, no erythema. LABORATORIES: Sodium 137, potassium 2.7, chloride 91, CO2 31, BUN 115 creatinine 5.5, serum glucose 69, calcium 8.6, magnesium 1.9, total bilirubin 0.6, AST 35, ALT 31, alkaline phosphatase 21, total creatinine kinase 461, troponin I 0.495, TSH 1.5, PT 12.4 and INR 1.2. Urinalysis; positive for esterase, occult blood. EKG; shows right bundle branch block with rate of [address] changes seen.No previous EKGs to compare. ASSESSMENT AND PLAN: This is a 71-year-old male, who presents with ongoing low blood pressure and found to have acute renal failure. 1. Acute renal failure and chronic kidney disease stage 4; baseline creatinine around 2.3. He presented with outpatient labs creatinine of 6 and in the ER creatinine was 5.3. Patient says his blood pressure is running on the lower side and also one of his pacemaker leads is not working; he is supposed to get it fixed. We will hold his Lasix and hold his Aldactone. We will hold his lisinopril and metolazone Place him on IV normal saline at 100 mL per hour for now. Follow labs in the a.m. Follow chest x-ray.in am and adjust fluids in the morning. Nephrology consulted. We will also get a pacemaker interrogation. 2. Hypokalemia. We will replace. 3. Elevated troponin, the patient is asymptomatic. We will follow serial cardiac enzymes and echocardiogram; cardiology consulted. 4. Chronic systolic congestive heart failure with ejection fraction of around 15-20% with mild elevation in troponin. We will repeat echocardiogram, holding all the diuretics and place him on IV fluids. We will monitor for volume overload. The patient is also status post pacemaker and question of one of the pacemaker leads malfunctioning; we will interrogate pacemaker and await cardiology input. 5. History of coronary artery disease, status post coronary artery bypass grafting and status post stents, we will continue home medications of aspirin, Plavix, Coreg with holding parameters and Lipitor. Follow echocardiogram. 6. History of hypotension. Holding lisinopril and diuretics. Continue Coreg with holding parameters. We will monitor blood pressure. 7. Hyperlipidemia. Continue statin. 8 Diabetes, on insulin pump which we will continue. Follow HbA1c levels. We will also place him on insulin sliding scale. 9. Deep venous thrombosis prophylaxis, heparin subQ. DISPOSITION: Closely monitor on the tele floor. Physical therapy and occupational therapy prior to discharge. Social Service to help with discharge planning. Level 1. Full code. Hospital Course This is a 71-year-old male, who presents with ongoing low blood pressure and found to have acute renal failure. Acute renal failure and chronic kidney disease stage 4; Baseline creatinine around 2.3. He presented with outpatient labs creatinine of 6 and in the ER creatinine was 5.3. Hold his Lasix ,Aldactone,lisinopril and metolazone Received IV normal saline at 100 mL per hour for now. Nephrology consulted-appreciate Input . Creatinine is lot better now Restarted back on Diuretics except Metolazone Renal function is back to baseline Discussed with the Veneer Sheet Repairer -will need PRP checked 2 times /week for 2 weeks Hypokalemia. We will replace. Likely secondary to Diuretics Used to take Potassium as an OP Will discharge on Oral potassium Elevated troponin, the patient is asymptomatic. Doubt any ACS Likely secondary to BRANDI Cardiology consulted-appreciate Input Chronic systolic congestive heart failure Ejection fraction of around 15-20% with mild elevation in troponin. Repeat echocardiogram, holding all the diuretics and place him on IV fluids. Status post pacemaker and question of one of the pacemaker leads malfunctioning; Interrogate pacemaker-done Will need to see his Cardiology as an OP History of coronary artery disease, status post coronary artery bypass grafting and status post stents, we will continue home medications of aspirin, Plavix, Coreg with holding parameters and Lipitor. Follow echocardiogram:: * The left ventricle is moderately dilated. * Left ventricular systolic function is severely reduced. * Ejection Fraction = 15-20%. * The right ventricle is mild to moderately dilated. * The right ventricular systolic function is mild to moderately reduced. * The left atrium is moderately dilated. * The right atrium is mild to moderately dilated. * There is mild mitral regurgitation. * There is moderate tricuspid regurgitation. * There is a pacemaker lead in the right ventricle. History of hypotension. Holding lisinopril and diuretics. Continue Coreg with holding parameters. We will monitor blood pressure. BP is controlled Hyperlipidemia. Continue statin. Diabetes, on insulin pump which we will continue. Follow HbA1c levels. We will also place him on insulin sliding scale. Deep venous thrombosis prophylaxis, heparin subQ. DISPOSITION Likely discharge this afternoon 2 steps before discharge Total time spent on discharge = 35 minutes This includes examination of the patient, discharge planning, medication reconciliation, and communication with other providers. Discharge Instructions Date of Service Dec 05, 2016. Admission Reason for Admission: Acute Renal Failure Discharge Discharge Diagnosis / Problem: BRANDI,Systolic heart Failure,CAD,Cardiomyopathy Discharge Goals Goal(s): Prevent Disease Progression Activity Recommendations Activity Limitations: resume your previous activity . Instructions / Follow-Up Instructions / Follow-Up Dr Garzon on 12/08/16 at 12:[address] PRP on Tue and -for 2 weeks, and report to Dr Lujan/Albert.Please keep appointment with your Coat Check Attendant. Current Hospital Diet Patient's current hospital diet: AHA Diet (Heart Healthy), Diabetes Type 2 Diet Discharge Diet Recommended Diet: AHA Diet (Heart Healthy), Low Sodium Diet (2gm Na), Diabetes Type 2 Diet Fluid Restriction: 1500 ml (6 cups) Pending Studies Studies pending at discharge: no Laboratory Results Hemoglobin A1c Test 12/02/16 05:07 Range/Units Estimated Average Glucose 183 mg/dl Hemoglobin A1c 8.0 H 4.5-5.6 % Medical Emergencies . Who to Call and When: Medical Emergencies: If at any time you feel your situation is an emergency, please call 911 immediately. . Non-Emergent Contact Non-Emergency issues call your: Primary Care Provider . Past History Medical & Surgical History: (1) Systolic CHF (2) Acute renal failure (3) Elevated troponin (4) Heart disease (5) Pacemaker (6) HTN (hypertension) (7) Diabetes . "Provider Documentation" section prepared by Juan Keith. . VTE Core Measure Inpt VTE Proph given/why not?: Unfractionated heparin SQ <Electronically signed by Juan Keith M.D.> Signed: 12/05/16 2608 Additional Copies To Rustam Garzon M.D.
== END 2016-12-05 15:59 | disposition home or self-care (01) | DRG 292 ==
LOC: C.EDB 18:20 → C.2T 20:57 → ENRESERV 21:15
PROVIDERS: ADMIT Internal Medicine; ATTEND Internal Medicine
DX: I13.0 Hypertensive heart and chronic kidney disease with heart failure and stage 1 through stage 4 chronic kidney disease, or unspecified chronic kidney disease (principal); N17.9 Acute kidney failure, unspecified; I50.22 Chronic systolic (congestive) heart failure; N18.4 Chronic kidney disease, stage 4 (severe); E11.22 Type 2 diabetes mellitus with diabetic chronic kidney disease; E78.5 Hyperlipidemia, unspecified; E87.6 Hypokalemia; I25.10 Atherosclerotic heart disease of native coronary artery without angina pectoris; I25.5 Ischemic cardiomyopathy; Z79.02 Long term (current) use of antithrombotics/antiplatelets; Z79.4 Long term (current) use of insulin; Z79.82 Long term (current) use of aspirin; Z79.899 Other long term (current) drug therapy; Z87.891 Personal history of nicotine dependence; Z95.0 Presence of cardiac pacemaker; Z96.41 Presence of insulin pump (external) (internal)

== ENCOUNTER 2017-03-30 12:54 | Inpatient (IN) | payer OTHER ==
[~2017-03-30] VITALS: Ht 167.6 cm; Wt 82.8 kg
[2017-03-30] VITALS (10 sets, daily range): BP systolic 89–126; BP diastolic 60–75; PULSE 83–94; TEMP 36.6–36.8; O2SAT 96–99; Ht 167.6 cm; Wt 82.8 kg
[~2017-03-30 12:54] MED LIST: ASPI81TA28 PO; ATOR-22 PO; CARV25TA2 PO; CHOL135C6 PO; CHOL2000 PO; CLOP1TAB15 PO; FURO80TA63 PO; INSPMPNVLG; ISOS30TA3 PO; MCRK20 PO; OMEG10007 PO; SPIR25TA PO
[2017-03-30] MEDS ORDERED: ICU PROTOCOL FOR HYPERGLYCEMIA PRN (16:00)
[2017-03-30 16:06] LABS: BASO % 0.2 %; BASO ABS # 0.03 K/uL (0-0.2); EOS % 0.5 %; EOS ABS # 0.08 K/uL (0-0.5); HEMATOCRIT 39.2 % (42-52); HEMOGLOBIN 12.9 g/dL (14.0-18.0); IG# 0.21 K/uL (0.00-0.02); LYMPH % 7.8 %; LYMPH ABS # 1.27 K/uL (1.2-3.4); MEAN CELL VOLUME 79.8 fL (80-100); MEAN CORPUSCULAR HEMOGLOBIN 26.3 pg (25-34); MEAN PLATELET VOLUME 10.9 fL (7.4-10.4); MONO % 4.1 %; MONO ABS # 0.67 K/uL (0.11-0.59); NEUT % 86.1 %; NEUT ABS # 14.05 K/uL (1.4-6.5); NUCLEATED RED BLOOD CELL ABS 0.09 K/uL (0-0); PLATELET COUNT 248 K/uL (130-400); RED CELL DISTRIBUTION WIDTH CV 18.6 % (11.5-14.5); RED CELL DISTRIBUTION WIDTH SD 52.6 fL (36.4-46.3); WHITE BLOOD COUNT 16.31 K/uL (4.8-10.8)
--- NOTE | 2017-03-30 16:06 | DIAGNOSTIC IMAGING REPORT ---
CHEST ONE VIEW PORTABLE CLINICAL HISTORY: CHF dyspnea COMPARISON STUDY: 12/01/2016 FINDINGS: Moderate stable cardiomegaly. Permanent bipolar cardiac pacemaker/fibrillator. Trace blunting of the costophrenic angles. Slight increase in prominence of pulmonary vasculature. IMPRESSION: Mild congestive failure. The above report was generated using voice recognition software. It may contain grammatical, syntax or spelling errors. Electronically signed by: Nitish Wilburn M.D. 03/30/2017 4:05 PM Dictated Date/Time: 03/30/2017 4:04 PM
[2017-03-30 16:15] LABS: MEAN CORPUSCULAR HGB CONC 32.9 g/dl (32-36)
[2017-03-30] MEDS ORDERED: PHARMACY GLYCEMIC MGMT CONSULT PRN (16:26)
[2017-03-30] MEDS ORDERED: INSULIN PROTOCOL GOAL RANGE ONE (16:30)
[2017-03-30] MEDS ORDERED: PIPERACILL/TAZOBAC CONSULT ACTIVE PRN (16:34)
[2017-03-30] MEDS ORDERED: VANCOMYCIN INJ 1,750 MG in SODIUM CHLORIDE 0.9% 500ML 500 ML IV ONE (16:45)
[2017-03-30] MEDS ORDERED: VANCOMYCIN CONSULT ACTIVE PRN (16:45)
[2017-03-30] MEDS ORDERED: INSULIN IV INFUSION PROTOCOL SCH (16:45)
[2017-03-30] MEDS ORDERED: PIPERACILL/TAZOBAC IV 4.5 GM in DEXTROSE 5% 100ML IV ONE (16:45)
[2017-03-30 16:48] LABS: ALBUMIN 2.6 gm/dl (3.4-5.0); CALCIUM 8.1 mg/dl (8.5-10.1); CREATININE 3.46 mg/dl (0.60-1.40); POTASSIUM 3.6 mmol/L (3.5-5.1); TOTAL PROTEIN 5.7 gm/dl (6.4-8.2)
[2017-03-30] MEDS ORDERED: METO2.5T PO (17:11)
[2017-03-30] MEDS: INSULIN ASPART 100 UNITS/ML 3 ML PEN SC SCH ×2 (17:15→20:48)
[2017-03-30 17:26] LABS: INR 1.9 (0.9-1.1)
[2017-03-30] MEDS ORDERED: INSULIN REGULAR 250 UNITS in SODIUM CHLORIDE 0.9% 250ML 250 ML IV SCH (18:00)
--- NOTE | 2017-03-30 18:05 | Critical Care Consultation ---
Critical Care Consultation Date of Consultation: Mar 30, 2017. Attending Physician: Juan Keith M.D. Reason for Consultation: Shock, multisystem organ dysfunction History of Present Illness Patient is a 72-year-old male who presents as a transfer from [facility] for worsening kidney function, elevated LFTs, poor ejection fraction. 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 When questioned why he decided not go to the facility he was at 2 weeks ago the reply was essentially that he would get his kidneys fixed which would make his heart worse and then they would fix his heart which is make his kidneys worse. When asked directly why he was transferred here he was unable to give me an exact cause nor diagnosis other than his kidney function was getting worse and his liver function was worse. I have reviewed the records from [facility], I have done my best to review the handwritten physician notes which are difficult to interpret and limit their utility. 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 Essentially the summary of the diagnostic tests performed are: 1. CT abdomen pelvis without contrast trace fluid in the pelvis of uncertain etiology trace bilateral effusions cardiomegaly 2. Cholelithiasis 3. High density lesion arising from the kidneys bilaterally these most likely represent proteinaceous cyst #4 colonic diverticulosis without evidence of diverticulitis 5. Prostatomegaly Abdominal ultrasound obtained March 29, 2017 Impression cholelithiasis. Gallbladder wall thickening, likely secondary to contraction. No biliary dilatation is appreciated Diffuse hepatic steatosis 3. Chest x-ray dated March 28, 2017 Findings cardiomegaly median sternotomy left-sided ICD. There is no consolidation or lateral atelectasis in either lung. There are no pleural effusions. There is no pneumothorax. No acute osseous process Echocardiography dated March 29, 2017 summary: Dilated left ventricle with severely decreased ejection fraction. Right ventricle is mildly dilated with mildly decreased function. Mildly dilated left atrium. Trileaflet aortic valve. There is no aortic regurgitation. There is mild mitral regurgitation. There is moderate tricuspid regurgitation. Moderately increased PAS P. There is physiologic pulmonic regurgitation. Normal aorta. The implanted cardiac defibrillator is noted. The ejection fraction is 10%. The patient appears to have been getting diltiazem orally, heparin drip was started for possible N STEMI. He was on atorvastatin, isosorbide, Coreg 25 mg twice daily, aspirin, clopidogrel, furosemide, potassium chloride, been on azithromycin 500 mg followed by a 250 mg tablets, digoxin, clindamycin, ceftriaxone. The patient's fluid balance appears to have increased 1478 mL Last set of labs appear to have a bedside glucose of 135, INR of 1.9 (the patient has not reportedly on Coumadin), hemoglobin 14 hematocrit 43.1 platelet count of 254 he had a mild left shift, sodium 129 potassium 4.3 chloride 93 carbon dioxide 22 calcium 8.4 phosphorus 5 5.8 magnesium 2.1 total bilirubin 3.6 direct bilirubin 2.3 AST 3951 ALT 2211 lactate dehydrogenase 3372 troponin high 1.48 brain natruretic peptide 20,819 urine revealed moderate bacteria moderate hyaline casts negative nitrate negative leuk esterase, blood gas revealed pH of 7.61 PCO2 of 33 PO2 of 90 which was reportedly taken on, unable to tell what the FiO2 was. The patient has a blood culture with no growth after 48 hours obtained from the right hand and another blood culture unknown area no growth after 48 hours, patient also has a pending urine culture. Patient is largely unclear of the exact etiology for his recent hospitalization and [facility] 2 weeks ago but he states that he had a second lead placed and his AICD defibrillator and pacer, a prior lead had broken status post fall. It is alluded to in the history and physical, I am led to believe that this may be for resynchronization therapy. When discussing his current state of health he states that he lives in a house that requires 13 steps. He is normally able to get to the top of the steps however about half the time he is winded when he reaches the top. He is reports he is only been hospitalized once in the last 6 months, records indicate otherwise in combinations of hospitalizations at multiple institutions. Family History Diabetes mellitus FH: heart disease Hypertension Kidney disease Social History Smoking Status: Former Smoker Housing Status: lives with family Occupation Status: retired (Retired contractor) Allergies Coded Allergies: No Known Allergies (Unverified , 12/01/16) Home Medications Scheduled Aspirin (Aspirin Ec), 81 MG PO DAILY Atorvastatin (Lipitor), 20 MG PO DAILY Carvedilol (Coreg), 25 MG PO BID Cholecalciferol (Vitamin D3), 2 CAP PO DAILY Choline Fenofibrate (Trilipix), 1 CAP PO DAILY Clopidogrel (Plavix), 75 MG PO DAILY Fish Oil ([place]-3), 1 CAP PO DAILY Furosemide (Lasix), 80 MG PO DAILY Insulin Aspart (novoLOG INSULIN PUMP ), 1 EA N/A UD Isosorbide Mononitrate Ext Rel (Imdur Ext Rel), 30 MG PO QAM Potassium Chloride (Klor-Con M20), 20 MEQ PO BID Spironolactone (Aldactone), 25 MG PO DAILY Current Inpatient Medications Current Inpatient Medications Medications (Trade) Dose Ordered Sig/Ilene Route Start Time Stop Time Status Last Admin Dose Admin Miscellaneous Information (Icu Protocol For Hyperglycemia) 1 ea PRN PRN N/A 03/30/17 16:00 04/01/17 15:59 Heparin Sodium (Porcine) (Heparin Sq 5000 Unit/0.5ml) 5,000 unit Q8 SQ 03/30/17 22:00 04/29/17 21:59 UNV Insulin Human Regular (Insulin IV Infusion Protocol) 1 ea Q15M N/A 03/30/17 16:45 04/29/17 16:44 Insulin Aspart (novoLOG ASPART) [facility] 03/30/17 17:15 04/29/17 17:14 Miscellaneous (Insulin Protocol Goal Range (Other)) 1 ea ONE ONCE N/A 03/30/17 16:30 03/30/17 16:31 UNV Miscellaneous Information (Consult Glycemic Management Pharmacy) 1 ea UD PRN N/A 03/30/17 16:26 04/29/17 16:25 Miscellaneous Information (Consult) 1 ea UD PRN N/A 03/30/17 16:34 04/29/17 16:33 Piperacillin Sod/ Tazobactam Sod 4.5 gm/Dextrose 120 ml @ 200 mls/hr NOW ONCE IV 03/30/17 16:45 03/30/17 17:20 Vancomycin HCl 1750 mg/Sodium Chloride 535 ml @ 200 mls/hr NOW ONCE IV 03/30/17 16:45 03/30/17 19:25 Miscellaneous Information (Consult) 1 ea UD PRN N/A 03/30/17 16:45 04/29/17 16:44 Review of Systems Constitutional: No fever, No chills, No sweats ENT: No hearing loss Respiratory: + shortness of breath, + dyspnea on exertion, No wheezing Cardiovascular: + orthopnea, + edema, No chest pain, No palpitations, No problem reported Abdomen: + nausea, No pain, No vomiting, No diarrhea, No constipation Musculoskeletal: No joint pain Genitourinary - Male: No hematuria, No dysuria Psychiatric: No depression symptoms, No anhedonism Hematologic / Lymphatic: No abnormal bleeding/bruising, No clotting problems Physical Exam Date Time Temp Pulse Resp B/P (MAP) Pulse Ox O2 Delivery O2 Flow Rate FiO2 03/30/17 15:29 36.7 83 22 89/61 96 Nasal Cannula 3.0 General Appearance: no apparent distress Head: normocephalic, atraumatic Eyes: PERRLA Neck: normal range of motion, no tenderness, trachea midline, no stridor, supple Respiratory: no respiratory distress, rales (Near basis) Cardiovasular: irregular rate, systolic murmur Abdomen: non tender Genitourinary - Male: other (Kelly present) Back: normal inspection Upper Extremities: no edema Lower Extremities: edema Edema: Bilateral LE (1+) Neuro: alert, oriented x 3 Psychiatric: normal affect Laboratory Results Last 24 Hours Test 03/30/17 15:52 White Blood Count 16.31 K/uL Red Blood Count 4.91 M/uL Hemoglobin 12.9 g/dL Hematocrit 39.2 % Mean Corpuscular Volume 79.8 fL Mean Corpuscular Hemoglobin 26.3 pg Mean Corpuscular Hemoglobin Concent 32.9 g/dl Platelet Count 248 K/uL Mean Platelet Volume 10.9 fL Neutrophils (%) (Auto) 86.1 % Lymphocytes (%) (Auto) 7.8 % Monocytes (%) (Auto) 4.1 % Eosinophils (%) (Auto) 0.5 % Basophils (%) (Auto) 0.2 % Neutrophils # (Auto) 14.05 K/uL Lymphocytes # (Auto) 1.27 K/uL Monocytes # (Auto) 0.67 K/uL Eosinophils # (Auto) 0.08 K/uL Basophils # (Auto) 0.03 K/uL RDW Standard Deviation 52.6 fL RDW Coefficient of Variation 18.6 % Immature Granulocyte % (Auto) 1.3 % Immature Granulocyte # (Auto) 0.21 K/uL Nucleated RBC Absolute Count (auto) 0.09 K/uL Nucleated Red Blood Cells % 0.6 % Sodium Level 132 mmol/L Potassium Level 3.6 mmol/L Chloride Level 91 mmol/L Carbon Dioxide Level 29 mmol/L Anion Gap 12.0 mmol/L Blood Urea Nitrogen 71 mg/dl Creatinine 3.46 mg/dl Est Creatinine Clear Calc Drug Dose 20.1 ml/min Estimated GFR () 19.6 Estimated GFR (Non- 16.9 BUN/Creatinine Ratio 20.6 Random Glucose 136 mg/dl Calcium Level 8.1 mg/dl Magnesium Level 2.2 mg/dl Total Bilirubin 3.3 mg/dl Aspartate Amino Transf (AST/SGOT) U/L Alkaline Phosphatase 48 U/L Pro-B-Type Natriuretic Peptide 40893 pg/ml Total Protein 5.7 gm/dl Albumin 2.6 gm/dl Globulin 3.1 gm/dl Albumin/Globulin Ratio 0.8 Diagnostic Results Hepatorenal syndrome hepatorenal syndrome complicated by cardiorenal syndrome March 30, 2017I have reviewed the images as well as the radiology report of the x-ray dated March 30 2017. Assessment & Plan (1) Prolonged Q-T interval on ECG (2) Transaminitis (3) Atrial fibrillation by electrocardiogram (4) Hepatorenal syndrome (5) Cardiorenal syndrome with renal failure Reason Critically Ill: Patient is critically ill due to cardiogenic shock leading to cardiorenal syndrome complicated by hepatorenal syndrome with multisystem organ dysfunction. PLAN: Neuro: Patient has decisional capacity at this time Resp: Mild hypoxia on ABG * Improved with 3 L nasal cannula * reports patient has not had sleep study but probably has obstructive sleep apnea with reports of gagging and loud snoring CV: Atrial fibrillation * This is reported to be new onset * Patient is rate controlled at this time * Placing the patient on agents to decrease his splanchnic circulation in order to treat a hepatorenal syndrome will likely lead to increased afterload and would likely adversely affect his cardiac function. * I have discussed the case briefly with cardiology, Dr. Lynn and Dr. oCrrea will be covering the overnight * After the pacemaker interrogation I will discuss the case with cardiology in terms of order of progression to treat this complex patient History of ischemic cardiomyopathy * Systolic congestive heart failure * Patient recently had additional lead placed converting to biventricular pacemaker * We will interrogate the pacemaker to see if patient is a candidate for resynchronization therapy * May be best optimized by increasing beta blockade * On digoxin therapy, check digoxin level * Patient likely candidate for systemic anticoagulation based on ejection fraction as well as atrial fibrillation * Patient reports no physician is ever mentioned anticoagulation to him * Given recent fall and unclear functional status he may not be the best candidate due to fall risk * Currently I think bleeding risk outweighs thrombosis risk in him holding systemic anticoagulation at this time Prolonged QTC on EKG * Stop QT prolonging meds On digoxin therapy * Check digoxin level Fluids/Renal: Stage IV chronic kidney disease * Kelly catheter present on admission, * If urine cultures organism this was present on admission Prostamegaly noted on CT scan Cardiorenal syndrome * This is compounded with hepatorenal syndrome, it is difficult to determine if we should volume expand the patient for hepatorenal syndrome or diurese the patient for cardiorenal syndrome or add additional vasoactive medications * At this point I believe the patient is euvolemic, he has an adequate blood pressure. Hyponatremia Hypochloremia Mildly elevated anion gap * Believe the electrolyte disturbances are all secondary to thiazide diuretic use * Optimize potassium to 4.5 and magnesium greater than 2 ID: Leukocytosis with mild left shift * Patient has blood cultures pending from [facility], will repeat here * We will start the patient on empiric broad-spectrum antibiotics of vancomycin and Zosyn. * Blood cultures are pending and there is no growth after 48 hours. We will need to avoid QT prolonging agents GI/Nutrition: Hepatorenal syndrome * I believe this is likely secondary to cardiorenal syndrome * Treatment of these 2 etiologies will be extremely difficult as the treatment paradigms are opposite of each other. Cholelithiasis * I do not believe the patient has choledocholithiasis at this time however we will start him on broad-spectrum antibiotic coverage Heme: Coagulopathy elevated INR * We will put him on heparin DVT prophylaxis at this time, I believe the bleeding risks outweigh the benefits of systemic anticoagulation at this time Anemia Endocrine: Diabetes mellitus on insulin pump * We will likely convert the patient to an IV insulin infusion for more consistent pharmacokinetics I had an extensive discussion with the patient, his , and his daughter. No one had discussed advanced directives or CODE STATUS with them per report. In a very nuanced discussion given his significant comorbidities and likelihood of an adverse outcome should he be successfully resuscitated if he entered cardiopulmonary arrest which I again believe would be highly unlikely to be successful he would not want to undergo heroic measures in the setting of cardiac arrest. He is agreeable to all further interventions and has been consented for endotracheal intubation in the event of respiratory arrest/ respiratory insufficiency central line placement for the administration of vasoactive medications arterial line placement, PICC line placement, blood transfusions, and bronchoscopy. At this point I believe that the patient is an end-stage medical condition. I believe he has a very poor prognosis. If the patient and family were to decide to transition from aggressive care to comfort measures I would be in agreement with this. I have personally spent 140 minutes of critical care time in the direct management of this patient. This is a life/limb threatening event. This includes time spent evaluating patient, direct bedside care, chart review, placing orders, interpretation of diagnostic studies, discussion with consultants, patient, and/or family members regarding treatment decisions, as well as other required patient management activities. This time is exclusive of all separately billable procedures, and teaching time and separate from and in addition to any other critical care service time.
--- NOTE | 2017-03-30 18:27 | Pharmacy Progress Note ---
Pharmacy Abx Initial Consult Date of Service Mar 30, 2017. Pharmacy Dosing Scope Date of Consult: 03/30/17 Consultation requested by: Tigist [facility] is consulted to initiate vancomycin and Zosyn IV dosing therapy, order appropriate labs and adjust drug dose/frequency. Subjective The patient is a 72 year old male admitted on Mar 30, 2017 at 15:17. Objective Height (Feet): 5 Height (Inches): 6.00 Weight (Kilograms): 83.000 Vital Signs (Past 12Hrs) Vital Signs Past 12 Hours Date Time Temp Pulse Resp B/P (MAP) Pulse Ox O2 Delivery O2 Flow Rate FiO2 03/30/17 18:01 87 23 107/64 (78) 99 03/30/17 17:01 83 27 126/75 (92) 99 03/30/17 15:29 36.7 83 22 89/61 96 Nasal Cannula 3.0 Lab Results (24Hrs) Laboratory Tests (24 Hours) Test 03/30/17 15:52 03/30/17 18:09 White Blood Count 16.31 K/uL (4.8-10.8) H Red Blood Count 4.91 M/uL (4.7-6.1) Hemoglobin 12.9 g/dL (14.0-18.0) L Hematocrit 39.2 % (42-52) L Mean Corpuscular Volume 79.8 fL (80-100) L Mean Corpuscular Hemoglobin 26.3 pg (25-34) Mean Corpuscular Hemoglobin Concent 32.9 g/dl (32-36) Platelet Count 248 K/uL (130-400) Mean Platelet Volume 10.9 fL (7.4-10.4) H Neutrophils (%) (Auto) 86.1 % Lymphocytes (%) (Auto) 7.8 % Monocytes (%) (Auto) 4.1 % Eosinophils (%) (Auto) 0.5 % Basophils (%) (Auto) 0.2 % Neutrophils # (Auto) 14.05 K/uL (1.4-6.5) H Lymphocytes # (Auto) 1.27 K/uL (1.2-3.4) Monocytes # (Auto) 0.67 K/uL (0.11-0.59) H Eosinophils # (Auto) 0.08 K/uL (0-0.5) Basophils # (Auto) 0.03 K/uL (0-0.2) Micro Results Date/Time Source Procedure Growth Status 03/30/17 18:09 Blood Blood Culture Pending Ordered 03/30/17 17:29 Blood Blood Culture Pending Ordered 03/30/17 17:33 Nasal MRSA DNA Surveillance Screen Pending Received Risk Factors for Resistance * Hospitalization for 48 hours or more within the past 90 days Assessment & Plan Assessment 72 year old male with a complex medical history who presents here as a direct transfer from [facility]. He is empirically placed on vancomycin and Zosyn secondary left shift. Plan vancomycin/Zosyn for treatment of empiric antibiotics Vancomycin IV * Loading dose: 1750 mg (21 mg/kg) * Goal trough level for empiric indications : ~15 mcg/mL * Random level ordered for 03/31/17 * A less than traditional dose and extended dosing interval have been selected due to likelihood of drug accumulation in patient with h/o CKD. Piperacillin/tazobactam * 4.5 g bolus administered over 30 minutes, then 4.5 g IV extended infusion every 12 hours for CrCl 20 mL/min or less and dialysis. * Aggressive dosing selected due to critically ill status Pharmacy will continue to follow and will adjust dose/frequency as necessary. Thank you.
--- NOTE | 2017-03-30 19:05 | History and Physical ---
History & Physical Date & Time of Service: Mar 30, 2017 ~ 16:45 Chief Complaint: Shortness of Breath Primary Care Physician: Rustam Garzon M.D. History of Present Illness 72 year old male who was transferred to [facility] from [facility] for further treatment of ischemic cardiomyopathy, new onset atrial fibrillation, shock liver , and BRANDI. Patient was seen at his PCP on 03/29 at his PCPs office and diagnosed with a URI. He was started on doxycycline. Shortly after patient became acutely short of breath and went to [facility]'s ED. He was found to be in atrial fibrillation with RVR. Rates improved with Cardizem IV bolus x 2. He was also found to have BRANDI and significantly elevated LFTs. Overnight, patient required BiPap for respiratory distress. He had a troponin leak. He was started on IV Heparin for atrial fibrillation and possible ACS. Given the acuity of his illness, patient was transferred to [facility] ICU for further care. Per the family, patient recently had one of his pacemaker wires changed because it "broke" after the patient fell. At the time of my exam, patient reports he is feeling well and much improved from his presentation at [facility]. Vitals signs are currently stable. He denies chest pain, shortness of breath, lightheadedness, dizziness, diaphoresis, and syncope. No abdominal pain, nausea, vomiting, or diarrhea. He has a arguello in place. Past Medical/Surgical History Medical Problems: (1) CAD (coronary artery disease) Permanent Comment: s/p CABG x 2 06/2001 s/p PCI - details unknown Status: Chronic (2) CKD (chronic kidney disease), stage IV Status: Chronic (3) DM type 1 (diabetes mellitus, type 1) Status: Chronic (4) HTN (hypertension) Status: Chronic (5) Ischemic cardiomyopathy Permanent Comment: EF 15-20% echo 11/2016 Status: Chronic (6) Presence of combination internal cardiac defibrillator (ICD) and pacemaker Status: Chronic Surgical Problems: (1) History of heart bypass surgery Status: Resolved (2) S/P CABG x 2 Status: Chronic Family History FH: heart disease FATHER MOTHER Social History Smoking Status: Former Smoker Alcohol Use: none Allergies Coded Allergies: No Known Allergies (Unverified , 12/01/16) Home Medications Scheduled Aspirin (Aspirin Ec), 81 MG PO DAILY Atorvastatin (Lipitor), 20 MG PO DAILY Carvedilol (Coreg), 25 MG PO BID Cholecalciferol (Vitamin D3), 2 CAP PO DAILY Choline Fenofibrate (Trilipix), 1 CAP PO DAILY Clopidogrel (Plavix), 75 MG PO DAILY Fish Oil (Portage-3), 1 CAP PO DAILY Furosemide (Lasix), 80 MG PO DAILY Insulin Aspart (novoLOG INSULIN PUMP ), 1 EA N/A UD Isosorbide Mononitrate Ext Rel (Imdur Ext Rel), 30 MG PO QAM Metolazone (Zaroxolyn), 2.5 MG PO DAILY Potassium Chloride (Klor-Con M20), 20 MEQ PO BID Spironolactone (Aldactone), 25 MG PO DAILY Review of Systems ROS per HPI, all other systems reviewed and negative Physical Exam Vital Signs Date Time Temp Pulse Resp B/P (MAP) Pulse Ox O2 Delivery O2 Flow Rate FiO2 03/30/17 15:29 36.7 83 22 89/61 96 Nasal Cannula 3.0 General Appearance: WD/WN, no apparent distress Head: normocephalic, atraumatic Eyes: normal inspection, EOMI, sclerae normal ENT: hearing grossly normal, + pertinent finding (mucous membranes dry) Neck: supple, no JVD, trachea midline Respiratory/Chest: no respiratory distress, + decreased breath sounds (BL bases ) Cardiovascular: no edema, normal peripheral pulses, + irregularly irregular ( rate controlled) Abdomen/GI: normal bowel sounds, non tender, soft, no organomegaly Genitourinary - Male: + pertinent finding (arguello in place) Extremities/Musculoskelatal: normal inspection, no calf tenderness, normal capillary refill Neurologic/Psych: no motor/sensory deficits, alert, normal mood/affect, oriented x 3 Skin: normal color, warm/dry Diagnostics Laboratory Results Results Past 24 Hours Test 03/30/17 15:52 03/30/17 17:05 Range/Units White Blood Count 16.31 4.8-10.8 K/uL Red Blood Count 4.91 4.7-6.1 M/uL Hemoglobin 12.9 14.0-18.0 g/dL Hematocrit 39.2 42-52 % Mean Corpuscular Volume 79.8 80-100 fL Mean Corpuscular Hemoglobin 26.3 25-34 pg Mean Corpuscular Hemoglobin Concent 32.9 32-36 g/dl Platelet Count 248 130-400 K/uL Mean Platelet Volume 10.9 7.4-10.4 fL Neutrophils (%) (Auto) 86.1 % Lymphocytes (%) (Auto) 7.8 % Monocytes (%) (Auto) 4.1 % Eosinophils (%) (Auto) 0.5 % Basophils (%) (Auto) 0.2 % Neutrophils # (Auto) 14.05 1.4-6.5 K/uL Lymphocytes # (Auto) 1.27 1.2-3.4 K/uL Monocytes # (Auto) 0.67 0.11-0.59 K/uL Eosinophils # (Auto) 0.08 0-0.5 K/uL Basophils # (Auto) 0.03 0-0.2 K/uL RDW Standard Deviation 52.6 36.4-46.3 fL RDW Coefficient of Variation 18.6 11.5-14.5 % Immature Granulocyte % (Auto) 1.3 % Immature Granulocyte # (Auto) 0.21 0.00-0.02 K/uL Nucleated RBC Absolute Count (auto) 0.09 0-0 K/uL Nucleated Red Blood Cells % 0.6 % Sodium Level 132 136-145 mmol/L Potassium Level 3.6 3.5-5.1 mmol/L Chloride Level 91 98-107 mmol/L Carbon Dioxide Level 29 21-32 mmol/L Anion Gap 12.0 3-11 mmol/L Blood Urea Nitrogen 71 7-18 mg/dl Creatinine 3.46 0.60-1.40 mg/dl Est Creatinine Clear Calc Drug Dose 20.1 ml/min Estimated GFR () 19.6 Estimated GFR (Non- 16.9 BUN/Creatinine Ratio 20.6 10-20 Random Glucose 136 70-99 mg/dl Calcium Level 8.1 8.5-10.1 mg/dl Magnesium Level 2.2 1.8-2.4 mg/dl Total Bilirubin 3.3 0.2-1 mg/dl Aspartate Amino Transf (AST/SGOT) 15-37 U/L Alkaline Phosphatase 48 45-117 U/L Pro-B-Type Natriuretic Peptide 62365 0-900 pg/ml Total Protein 5.7 6.4-8.2 gm/dl Albumin 2.6 3.4-5.0 gm/dl Globulin 3.1 2.5-4.0 gm/dl Albumin/Globulin Ratio 0.8 0.9-2 Diagnostic Radiology CXR IMPRESSION: Mild congestive failure. Impression Assessment and Plan ISCHEMIC CARDIOMYOPATHY (PACER/AICD IN PLACE) POSSIBLE CARDIORENAL, HEPATORENAL SYNDROMES ATRIAL FIBRILLATION - admitted to ICU from [facility] - patient with complicated history with limited records currently available - presented to [facility]'s ED yesterday with shortness of breath, found to have new onset atrial fibrillation, BRANDI, and elevated LFTs - EF 15-20% on echo from 11/2016 - possible hepatorenal syndrome from cardiorenal syndrome - patient's vitals currently stable - case discussed with Dr. Milton - will obtain pacemaker interrogation tonight and Dr. Milton will discuss with cardiology regarding further treatment plan - currently appears to be euvolemic - will hold on diuretics - beta jerry and nitrate to be addressed with cardiology - given patient's current coagulopathy, will hold on systemic IV heparin for now LEUKOCYTOSIS - no clear source of infection - blood cultures obtained from [facility] on 03/29 - U/A does not suggest infection, no infiltrate on CXR - empiric Vanco and Zosyn until blood cultures result DM TYPE I - hold home insulin pump and utilize insulin infusion while hospitalized DVT PROPHYLAXIS - SQ heparin CODE STATUS - Patient is a DNR as per Dr. Milton's discussion with patient and family. DISPO - In my clinical judgment this beneficiary meets acute admission criteria, established by [facility], that includes being hospitalized through two midnights. ATTENDING ADDENDUM : pt seen and examined, care co ordinated with Tigist MAURICIO 72 yo M with multiple co morbidities Transferred from [facility] due to progressive SOB , Orthopnea , generalized weakness Cxray shows pulm congestion , pt was diuresed in [facility] found to have markedly elevated Transaminase BRANDI transferred to [facility] as pt needs Cardiology eval pt developed rapid afib which converted to rate controlled Afib after IV Cardizem in ER pt remains hypotensive /tachycardic markedly elevated AST/ALT > 4000 suggestive of Shock liver admitted to ICU case D/w addiction therapist and Cardiology pt will need mechanical circulatory support -AIBP/ECHO Family and pt willing to have care tx to [facility] in [place] pt started on IV Milrinone gtt can be started on IV Amiodarone if rhythm changed to rapid afib spoke with [facility] transfer Center for transfer to Tertiary level care spoke with CCU addiction therapist Dr Belen Nuñez pt is accepted waiting for bed l availability I Chart and lab copied will be life flighted to [place] please refer to documentation by Tigist MAURICIO for further discussion of other issues Carolina Gutierrez MD Level of Care Critical Care Advanced Directives Existing Living Will: Yes Existing Power of Manager Operations Research: No Resuscitation Status FULL RESUSCITATION VTE Prophylaxis VTE Risk Assessment Done? Y/N: Yes Risk Level: Moderate Given or contraindicated: Unfractionated heparin SQ
[2017-03-30] MEDS ORDERED: POTASSIUM CHLORIDE 20 MEQ TABCR PO ONE (19:15)
[2017-03-30] MEDS: MILRINONE / D5W 20,000 MCG in PREMIXED IN D5W 100 ML IV SCH (20:48)
[2017-03-30] MEDS ORDERED: CALCIUM GLUCONATE 10% 1,000 MG in SODIUM CHLORIDE 0.9% 50ML 50 ML IV STA (21:07)
[2017-03-30] MEDS ORDERED: DEXTROSE 50% 50 ML SYR ONE (21:46)
[2017-03-30] MEDS: HEPARIN SOD 5000 UNIT/0.5 ML CARP SQ SCH (21:47)
[2017-03-30] MEDS ORDERED: NURSING VERBAL MED ORDER STA (21:49)
[2017-03-30] MEDS ORDERED: GLUCAGON FOR INJ 1 MG VIAL SQ PRN (22:00)
[2017-03-30] MEDS ORDERED: DEXTROSE 50% 50 ML SYR IV PRN (22:00)
[2017-03-30] MEDS ORDERED: GLUCOSE 40% GEL 15 GM TUBE PO PRN (22:00)
[2017-03-30] MEDS ORDERED: GLUCOSE 10 TABS/TUBE PO PRN (22:00)
[2017-03-31] VITALS (18 sets, daily range): BP systolic 84–127; BP diastolic 54–75; PULSE 75–106; TEMP 36.3–36.7; O2SAT 89–98
[2017-03-31] MEDS ORDERED: PIPERACILL/TAZOBAC IV 4.5 GM in DEXTROSE 5% 100ML IV SCH (02:00)
[2017-03-31 06:00] LABS: HEMATOCRIT 37.6 % (42-52); MEAN CELL VOLUME 80.2 fL (80-100); MEAN CORPUSCULAR HEMOGLOBIN 25.6 pg (25-34); MEAN CORPUSCULAR HGB CONC 31.9 g/dl (32-36); MEAN PLATELET VOLUME 10.8 fL (7.4-10.4); NUCLEATED RED BLOOD CELL ABS 0.08 K/uL (0-0); PLATELET COUNT 217 K/uL (130-400); RED CELL DISTRIBUTION WIDTH CV 18.8 % (11.5-14.5); RED CELL DISTRIBUTION WIDTH SD 53.3 fL (36.4-46.3); WHITE BLOOD COUNT 12.32 K/uL (4.8-10.8)
[2017-03-31] MEDS: HEPARIN SOD 5000 UNIT/0.5 ML CARP SQ SCH ×2 (06:16→14:05)
[2017-03-31 06:44] LABS: ALBUMIN 2.5 gm/dl (3.4-5.0); CALCIUM 8.6 mg/dl (8.5-10.1); CREATININE 2.79 mg/dl (0.60-1.40); PHOSPHORUS 3.2 mg/dl (2.5-4.9); TOTAL PROTEIN 5.6 gm/dl (6.4-8.2)
--- NOTE | 2017-03-31 06:47 | DIAGNOSTIC IMAGING REPORT ---
BILATERAL LOWER EXTREMITY VENOUS DOPPLER HISTORY: Acute bilateral lower extremity swelling with concern for DVT r/o dvt COMPARISON STUDY: None. FINDINGS: There is normal compressibility, flow, and augmentation within the bilateral lower extremity deep venous systems. IMPRESSION: No sonographic evidence of deep venous thrombosis within the right or left lower extremity. Electronically signed by: Leonard Schmidt M.D. 03/31/2017 6:46 AM Dictated Date/Time: 03/31/2017 6:45 AM
--- NOTE | 2017-03-31 07:05 | DIAGNOSTIC IMAGING REPORT ---
DUPLEX PORTAL HEPATIC VEINS CLINICAL HISTORY: 72 years-old Male presenting with r/o Budd-Chiari. TECHNIQUE: Real-time grayscale and limited color Doppler ultrasound imaging of the abdomen limited to the right upper quadrant was performed. COMPARISON: None. FINDINGS: Vasculature: Hepatic veins: Right, middle, and left hepatic veins patent with normal triphasic waveforms. IVC: Patent with normal waveforms. Portal veins: Main portal vein with normal antegrade flow and gentle undulating waveforms with a maximum velocity of 20-30 cm/s. Right and left portal veins patent with normal directional flow. Splenic vein: Not visualized. Liver: Normal echogenicity and echotexture. The liver measures 14.2 cm in maximal sagittal dimension. Biliary: No intrahepatic biliary ductal dilatation. Gallbladder: Gallstones without evidence of gallbladder distention, wall thickening, or pericholecystic fluid or inflammatory change. Sonographic Carroll's sign negative. Ascites: None. Other: Right pleural effusion. IMPRESSION: 1. Patent hepatic veins and IVC. No sonographic evidence of Budd-Chiari syndrome. Electronically signed by: Flaquito Brown M.D. 03/31/2017 7:03 AM Dictated Date/Time: 03/31/2017 6:59 AM
[2017-03-31] MEDS ORDERED: VANCOMYCIN INJ 1,000 MG in SODIUM CHLORIDE 0.9% 250ML 250 ML IV ONE (07:30)
[2017-03-31] MEDS: INSULIN ASPART 100 UNITS/ML 3 ML PEN SC SCH ×2 (07:54→12:00)
[2017-03-31] MEDS ORDERED: POTASSIUM CHLORIDE 20 MEQ TABCR PO ONE (09:00)
--- NOTE | 2017-03-31 10:18 | Clinical Documentation Query ---
Dr. SERVIN [facility] : CLINICAL DOCUMENTATION QUERY Patient is a 72 year old male admitted for treatment of hepatorenal and cardiorenal syndrome, atrial fibrillation. Serum troponin 1.78 ng/ml. Attending documentation includes "possible ACS" which is non-specific. [place] documentation includes a diagnosis of NSTEMI. This is not iterated in attending documentation. As appropriate, consider documentation as suggested below. Thank you In your clinical opinion is this patient being managed for: ( ) Non-ST elevation (NSTEMI) myocardial infarction (?Type II [place]) ( ) Not Agree ( ) Other explanation of clinical findings (Please Explain) ( ) Unable to determine (Please Define) ( ) Need to Discuss The medical record reflects the following clinical findings, treatment, and risk factors. Clinical Indicators: As above Treatment: ICU, strategic sourcing manager consultation, Milrinone infusion, Bi-PAP Risk Factors: Age, afib with RVR, cardiorenal syndrome. Please clarify and document your clinical opinion in the progress notes and discharge summary. Terms such as "probable", "suspected", "likely", "questionable", "possible", or "still to be ruled out" are acceptable. IF IN AGREEMENT, YOU MUST DOCUMENT ABOVE DIAGNOSTIC STATEMENT IN DAILY PROGRESS NOTES AND DISCHARGE SUMMARY. This document is not part of the patient's record. Thank You, Jack Barraza, GRACIE [phone]
--- NOTE | 2017-03-31 11:51 | Critical Care Progress Note ---
Critical Care Progress Note Date of Service Mar 31, 2017. ICU Day ICU Day Number: [address] Milton Subjective Found patient resting comfortably. Converses easily, says has no pain, SOB, or any acute concerns. Objective General Appearance: Awake, alert, NAD. HEENT: NCAT, EOMI, clear sclerae, dry oral MM, supple neck. Respiratory/Chest: No resp distress. NC in place. Mild decreased breath sounds in bases. AICD. Cardiovascular: + S1S2, irregularly irregular 90's, 2/6 systolic murmur. Abdomen: + BS, soft, non-tender, non-distended. Arguello in place. Extremities/Musculoskeletal: Easy movement. Trace bilateral lower edema. No calf ttp. Neurologic/Psych: Alert, oriented x 3, normal mood/affect. Assessment & Plan 72 yo male transfer from [facility] due to cardiogenic shock leading to cardiorenal syndrome, complicated by hepatorenal syndrome and multisystem organ dysfunction. 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 Has decisional capacity at present. No acute issues. Pulm: Prior progressive SOB. CXR notes mild congestive failure. No known underlying disease, though ? home BRIAN sx per . VBG 7.44/45/30. Here on 2L NC. CVS: Cardiogenic shock leading to cardiorenal syndrome. Hx CABG x 2 vessel June 2001. (1) Afib: Biventricular pacemaker interrogation noted afib 70% of time. ? acute vs chronic. Presently self-rate controlled. Digoxin level 0.7. - Consider future resynchronization therapy and/or LVAD. Stay off home digoxin for now while not tachy. Monitor HR. (2) Ischemic cardiomyopathy, systolic CHF: PMH of same. [id number] outside echo reported (in part) as dilated LV with EF 10%. On milrinone here, with improving systemic circulation by labs. (3) Prolonged QTc: Hold related meds. ID: Reported recent URI 13Feb on doxy. CINDY Dar 12Feb BCx x2 no growth 72h, 13Feb BCx x2 no growth 48h. CXR not suggestive of infiltrate. CINDY Dar UA negative nitrate & LE. Here: Afebrile, CBC WBC 16 -> 12, 14Feb BCx pending, nasal MRSA neg. No clear source of ongoing infection, but has been on empiric zosyn & vancomycin. - Likely stop abx soon. Avoid QTc-prolonging agents. Endo: PMH DM1. Glc [phone]. On insulin drip for tigher control. Renal/Lytes: (1) Cardiorenal syndrome: Compounded by hepatorenal syndrome, thus challenges on volume status. Global I/O [phone]. BP MAP 66-89. - Optimize electrolytes: Goal K > 4.5 and Mag > 2. Repleting prn. (2) PMH CKD stage 4. Arguello cath present on transfer. Cr 3.46 -> 2.79. Na 135 , Cl 93 - likely due to prior diuresis. (3) Prostatomegaly seen on outside CT scan. GI: Hepatic failure (shock liver) and ischemic hepatitis likely secondary to hepatorenal syndrome. Prior CT noted cholelithiasis but do not suspect current cholecystitis/-docholithiasis. Outside 13Feb abd u/s noted diffuse hepatic steatosis without ductal dilatation. Here: Liver u/s unremarkable and bilateral LE u/s showed no DVT. Improving AST & ALT s/p start milrinone. - Diet to AHA, DM1, low sodium, renal, with fluid restrict 1200 mL. Heme: Anemia with Hb 13 -> 12. Coagulopathy with INR 1.9. - On heparin for DVT. Holding further anticoagulation due to overriding bleeding risk. Skin: No acute issues. Lines: Right hand PIV, Left wrist PIV, arguello. Code status: DNR. Extensive attending discussion with patient, , and daughter about the same. DVT prophy: Heparin. PT/OT: Deferred. Dispo: ICU care. Planned transfer to [facility] in [place] for tertiary level care. Resident Physician Supervision Note: Dr. Borges was resident physician during care of patient. I separately evaluated patient and did history and exam. I discussed the case with the resident and generally agree with the findings and plan. CLass 4 Heart failure with likely cardiorenal syndrome producing hepatorenal syndrome. Mild improvement in cardiac output with starting of dobutamine. Patient needs advanced heart failure care team, may benefit from mechanical circulatory support and evaluation for possible LVAD. Patient's care was discussed with multidisciplinary rounds this morning. I have personally spent 65 minutes of critical care time in the direct management of this patient. This is a life/limb threatening event. This includes time spent evaluating patient, direct bedside care, chart review, placing orders, interpretation of diagnostic studies, discussion with consultants, patient, and/ or family members regarding treatment decisions, as well as other required patient management activities. This time is exclusive of all separately billable procedures, and teaching time and separate from and in addition to any other critical care service time. Documented By: Jack Milton DO Data Medications: Current Inpatient Medications Medications (Trade) Dose Ordered Sig/Ilene Route Start Time Stop Time Status Last Admin Dose Admin Heparin Sodium (Porcine) (Heparin Sq 5000 Unit/0.5ml) 5,000 unit Q8 SQ 03/30/17 22:00 04/29/17 21:59 03/31/17 06:16 5,000 UNIT Insulin Aspart (novoLOG ASPART) [facility] 03/30/17 17:15 04/29/17 17:14 Miscellaneous Information (Consult Glycemic Management Pharmacy) 1 ea UD PRN N/A 03/30/17 16:26 04/29/17 16:25 Miscellaneous Information (Consult) 1 ea UD PRN N/A 03/30/17 16:34 04/29/17 16:33 Miscellaneous Information (Consult) 1 ea UD PRN N/A 03/30/17 16:45 04/29/17 16:44 Insulin Human Regular 250 units/ Sodium Chloride 252.5 ml @ 0 mls/hr Q24H IV 03/30/17 18:00 04/29/17 17:59 03/30/17 18:43 3.1 MLS/HR Piperacillin Sod/ Tazobactam Sod 4.5 gm/Dextrose 120 ml @ 30 mls/hr Q12H IV 03/31/17 02:00 04/02/17 01:59 03/31/17 01:58 30 MLS/HR Milrinone Lactate/ Dextrose 03254 mcg/Prmx 100 ml @ 6.2 mls/hr Q16H8M IV 03/30/17 20:30 04/29/17 20:29 03/30/17 20:48 6.2 MLS/HR Glucose (Glucose 40% Gel) 15-30 GRAMS 15 GRAMS... UD PRN PO 03/30/17 22:00 04/29/17 21:59 Glucose (Glucose Chew Tab) 4-8 Tablets 4 Tabl... UD PRN PO 03/30/17 22:00 04/29/17 21:59 Dextrose (Dextrose 50% 50ML Syringe) 25-50ML OF 50% DW IV FOR... UD PRN IV 03/30/17 22:00 04/29/17 21:59 Glucagon (Glucagon Inj) 1 mg UD PRN SQ 03/30/17 22:00 04/29/17 21:59 Vital Signs: Date Time Temp Pulse Resp B/P (MAP) Pulse Ox O2 Delivery O2 Flow Rate FiO2 03/31/17 10:14 Nasal Cannula 2.0 03/31/17 10:01 103 26 88/61 (66) 89 03/31/17 09:01 100 29 127/62 (80) 95 03/31/17 08:57 36.7 Nasal Cannula 2.0 03/31/17 08:02 91 25 113/69 (89) 97 03/31/17 08:00 Nasal Cannula 2.0 03/31/17 06:01 96 19 125/54 (77) 94 03/31/17 05:01 98 27 121/64 (87) 96 03/31/17 04:01 75 29 104/61 (67) 95 03/31/17 04:00 36.4 03/31/17 04:00 98 Nasal Cannula 2.0 03/31/17 03:01 87 37 113/57 (65) 93 03/31/17 02:01 92 25 116/70 (81) 98 03/31/17 01:01 92 27 101/65 (84) 93 03/31/17 00:01 85 27 122/75 (89) 96 03/30/17 23:59 36.6 03/30/17 23:59 98 Nasal Cannula 2.0 03/30/17 23:01 88 20 117/70 (82) 97 03/30/17 22:01 88 26 120/60 (76) 98 03/30/17 21:01 88 24 96/70 (79) 96 03/30/17 20:18 94 23 100/61 (62) 98 03/30/17 20:00 36.8 03/30/17 20:00 99 Nasal Cannula 3.0 03/30/17 19:01 89 25 117/64 (76) 98 03/30/17 18:01 87 23 107/64 (78) 99 03/30/17 17:01 83 27 126/75 (92) 99 03/30/17 15:29 36.7 83 22 89/61 96 Nasal Cannula 3.0 Laboratory Results: Last 24 Hours Test 03/30/17 15:52 03/30/17 18:09 03/30/17 18:10 03/30/17 19:25 White Blood Count 16.31 K/uL Red Blood Count 4.91 M/uL Hemoglobin 12.9 g/dL Hematocrit 39.2 % Mean Corpuscular Volume 79.8 fL Mean Corpuscular Hemoglobin 26.3 pg Mean Corpuscular Hemoglobin Concent 32.9 g/dl Platelet Count 248 K/uL Mean Platelet Volume 10.9 fL Neutrophils (%) (Auto) 86.1 % Lymphocytes (%) (Auto) 7.8 % Monocytes (%) (Auto) 4.1 % Eosinophils (%) (Auto) 0.5 % Basophils (%) (Auto) 0.2 % Neutrophils # (Auto) 14.05 K/uL Lymphocytes # (Auto) 1.27 K/uL Monocytes # (Auto) 0.67 K/uL Eosinophils # (Auto) 0.08 K/uL Basophils # (Auto) 0.03 K/uL RDW Standard Deviation 52.6 fL RDW Coefficient of Variation 18.6 % Immature Granulocyte % (Auto) 1.3 % Immature Granulocyte # (Auto) 0.21 K/uL Nucleated RBC Absolute Count (auto) 0.09 K/uL Nucleated Red Blood Cells % 0.6 % Prothrombin Time 20.0 SECONDS Prothromb Time International Ratio 1.9 Sodium Level 132 mmol/L Potassium Level 3.6 mmol/L Chloride Level 91 mmol/L Carbon Dioxide Level 29 mmol/L Anion Gap 12.0 mmol/L Blood Urea Nitrogen 71 mg/dl Creatinine 3.46 mg/dl Est Creatinine Clear Calc Drug Dose 20.1 ml/min Estimated GFR () 19.6 Estimated GFR (Non- 16.9 BUN/Creatinine Ratio 20.6 Random Glucose 136 mg/dl Calcium Level 8.1 mg/dl Magnesium Level 2.2 mg/dl Total Bilirubin 3.3 mg/dl Aspartate Amino Transf (AST/SGOT) 7326 U/L Alanine Aminotransferase (ALT/SGPT) 3261 U/L Alkaline Phosphatase 48 U/L Troponin I 1.780 ng/ml Pro-B-Type Natriuretic Peptide 38045 pg/ml Total Protein 5.7 gm/dl Albumin 2.6 gm/dl Globulin 3.1 gm/dl Albumin/Globulin Ratio 0.8 Lactic Acid Level 2.2 mmol/L Digoxin Level 0.7 ng/ml Venous Blood pH 7.44 Venous Blood Partial Pressure CO2 45 mmHg Venous Blood Partial Pressure O2 81 mmHg Venous Blood HCO3 30 mmol/L Venous Blood Oxygen Saturation 95.3 % Venous Blood Base Excess 5.2 mEq/L Bedside Glucose 107 mg/dl Test 03/30/17 20:34 03/30/17 21:21 03/30/17 21:39 03/30/17 22:01 Bedside Glucose 96 mg/dl 84 mg/dl 161 mg/dl Ionized Calcium 1.04 mmol/l Test 03/30/17 22:58 03/30/17 23:56 03/31/17 00:57 03/31/17 01:50 Bedside Glucose 125 mg/dl 117 mg/dl 115 mg/dl 103 mg/dl Test 03/31/17 03:01 03/31/17 03:58 03/31/17 04:57 03/31/17 05:29 Bedside Glucose 133 mg/dl 139 mg/dl 121 mg/dl White Blood Count 12.32 K/uL Red Blood Count 4.69 M/uL Hemoglobin 12.0 g/dL Hematocrit 37.6 % Mean Corpuscular Volume 80.2 fL Mean Corpuscular Hemoglobin 25.6 pg Mean Corpuscular Hemoglobin Concent 31.9 g/dl RDW Standard Deviation 53.3 fL RDW Coefficient of Variation 18.8 % Platelet Count 217 K/uL Mean Platelet Volume 10.8 fL Nucleated RBC Absolute Count (auto) 0.08 K/uL Nucleated Red Blood Cells % 0.6 % Sodium Level 135 mmol/L Potassium Level 3.0 mmol/L Chloride Level 93 mmol/L Carbon Dioxide Level 31 mmol/L Anion Gap 11.0 mmol/L Blood Urea Nitrogen 64 mg/dl Creatinine 2.79 mg/dl Est Creatinine Clear Calc Drug Dose 24.9 ml/min Estimated GFR () 25.5 Estimated GFR (Non- 22.0 BUN/Creatinine Ratio 23.0 Random Glucose 126 mg/dl Calcium Level 8.6 mg/dl Phosphorus Level 3.2 mg/dl Magnesium Level 2.3 mg/dl Total Bilirubin 3.8 mg/dl Aspartate Amino Transf (AST/SGOT) 4310 U/L Alanine Aminotransferase (ALT/SGPT) 2848 U/L Alkaline Phosphatase 44 U/L Total Protein 5.6 gm/dl Albumin 2.5 gm/dl Globulin 3.1 gm/dl Albumin/Globulin Ratio 0.8 Random Vancomycin Level 17.6 mcg/ml Test 03/31/17 05:56 03/31/17 07:51 03/31/17 10:08 03/31/17 11:02 Bedside Glucose 119 mg/dl 141 mg/dl 191 mg/dl 157 mg/dl Resident Tracking Resident Involvement: Resident Care Provided Care Provided: Adult Hospital Medicine (ICU care)
[2017-03-31] MEDS: MILRINONE / D5W 20,000 MCG in PREMIXED IN D5W 100 ML IV SCH (12:07)
--- NOTE | 2017-03-31 12:48 | Discharge Instructions ---
Discharge Instructions Date of Service Mar 31, 2017. Admission Reason for Admission: CHF Discharge Discharge Diagnosis / Problem: ACUTE SYSTOLIC CHF, SHOCK LIVER Discharge Goals Goal(s): Decrease discomfort, Improve function Activity Recommendations Activity Level: Assistance Required . Additional Information Patient informed of condition: Yes Advance Directives: Yes DNR: Yes Level of Care: Other (TRANSFER TO [facility].) Communicable Disease: No Prognosis: Other (TRANSFERRING TO TERTIARY CARE) Oxygen at (LPM): 2LTS Kelly Catheter: No Instructions / Follow-Up Instructions / Follow-Up FOLLOWUP PER [facility] RECOMMENDATIONS Current Hospital Diet Patient's current hospital diet: AHA Diet (Heart Healthy), Low Sodium Diet (2gm Na), Diabetes Type 1 Diet Discharge Diet Recommended Diet: AHA Diet (Heart Healthy), Diabetes Type 1 Diet Pending Studies Studies pending at discharge: no Physician Orders On Transfer Special Precautions: FALL AND ASPIRATION PRECAUTIONS IV Therapy: IV ZOSYN IV MILRINONE DRIP Vital Signs: EVERY 8HRS Additional Orders: PLEASE CHECK MEDICATION RECONCILIATION FOR ACCURATE MED LIST Medical Emergencies . Who to Call and When: Medical Emergencies: If at any time you feel your situation is an emergency, please call 911 immediately. . Non-Emergent Contact Non-Emergency issues call your: Primary Care Provider . . "Provider Documentation" section prepared by Amando Nuno. . Core Measure Problem Core Measures: None
--- NOTE | 2017-03-31 19:23 | Progress Note ---
Internal Med Progress Note Date of Service: Mar 31, 2017. Provider Documentation: SUBJECTIVE: resting comfortably afebrile feeling better today denies sob o chest pain no nausea tolerated diet ok ok for [facility] OBJECTIVE: Vital Signs-as noted below Exam: General-alert and oriented. Not in distress ENT-normal hearing Neck-no neck masses Lungs-cta b/l no wheezing bibasilar crackles present Heart-s1 and s2 heard regular rate and rhythm no murmurs Abdomen-soft bowel sounds present non tender no distension Extremities-trace pedal edema no erythema Neuro-alert and awake moves extremities Lab data as noted below. ASSESSMENT & PLAN: ISCHEMIC CARDIOMYOPATHY (PACER/AICD IN PLACE) POSSIBLE CARDIORENAL, HEPATORENAL SYNDROMES ATRIAL FIBRILLATION Acute on chronic systolic CHF admitted to ICU from [facility] patient with complicated history with limited records currently available as per H and P presented to [facility] day before with shortness of breath , found to have new onset atrial fibrillation, BRANDI, and elevated LFTs EF 15-20% on echo from 11/2016 possible hepatorenal syndrome from cardiorenal syndrome critical care on board \patient was placed on milrinone drip patient was transferred to [facility] for further care. Shock liver from above total bili 3.8 alt 7000 today in 4000's ast 3000's today in 2000's transferred to [facility] LEUKOCYTOSIS no clear source of infection blood cultures obtained from [facility] on 03/29 U/A does not suggest infection, no infiltrate on CXR empiric Vanco and Zosyn until blood cultures result DM TYPE I holding home insulin pump and utilize insulin infusion while hospitalized DVT PROPHYLAXIS SQ heparin CODE STATUS Patient is a DNR as per Dr. Milton's discussion with patient and family. DISPOSITION transferred to [facility] Vital Signs: Date Time Temp Pulse Resp B/P (MAP) Pulse Ox O2 Delivery O2 Flow Rate FiO2 03/31/17 14:02 94 28 105/56 (61) 96 03/31/17 14:00 Nasal Cannula 2.0 03/31/17 13:07 36.3 106 27 94 Nasal Cannula 03/31/17 13:02 106 27 93/61 (67) 94 03/31/17 12:02 99 29 103/65 (79) 93 03/31/17 12:00 Nasal Cannula 2.0 03/31/17 12:00 97 27 95 03/31/17 12:00 36.3 Nasal Cannula 2.0 03/31/17 11:01 103 23 84/66 (71) 95 03/31/17 10:14 Nasal Cannula 2.0 03/31/17 10:01 103 26 88/61 (66) 89 03/31/17 09:01 100 29 127/62 (80) 95 03/31/17 08:57 36.7 Nasal Cannula 2.0 03/31/17 08:02 91 25 113/69 (89) 97 03/31/17 08:00 Nasal Cannula 03/31/17 08:00 Nasal Cannula 2.0 03/31/17 06:01 96 19 125/54 (77) 94 03/31/17 05:01 98 27 121/64 (87) 96 03/31/17 04:01 75 29 104/61 (67) 95 03/31/17 04:00 36.4 03/31/17 04:00 98 Nasal Cannula 2.0 03/31/17 03:01 87 37 113/57 (65) 93 03/31/17 02:01 92 25 116/70 (81) 98 03/31/17 01:01 92 27 101/65 (84) 93 03/31/17 00:01 85 27 122/75 (89) 96 03/30/17 23:59 36.6 03/30/17 23:59 98 Nasal Cannula 2.0 03/30/17 23:01 88 20 117/70 (82) 97 03/30/17 22:01 88 26 120/60 (76) 98 03/30/17 21:01 88 24 96/70 (79) 96 03/30/17 20:18 94 23 100/61 (62) 98 03/30/17 20:00 36.8 03/30/17 20:00 99 Nasal Cannula 3.0 Lab Results: Results Past 24 Hours Test 03/30/17 19:25 03/30/17 20:34 03/30/17 21:21 03/30/17 21:39 Range/Units Bedside Glucose 107 96 84 70-99 mg/dl Ionized Calcium 1.04 1.12-1.32 mmol/l Test 03/30/17 22:01 03/30/17 22:58 03/30/17 23:56 03/31/17 00:57 Range/Units Bedside Glucose 161 125 117 115 70-99 mg/dl Test 03/31/17 01:50 03/31/17 03:01 03/31/17 03:58 03/31/17 04:57 Range/Units Bedside Glucose 103 133 139 121 70-99 mg/dl Test 03/31/17 05:29 03/31/17 05:56 03/31/17 07:51 03/31/17 10:08 Range/Units White Blood Count 12.32 4.8-10.8 K/uL Red Blood Count 4.69 4.7-6.1 M/uL Hemoglobin 12.0 14.0-18.0 g/dL Hematocrit 37.6 42-52 % Mean Corpuscular Volume 80.2 80-100 fL Mean Corpuscular Hemoglobin 25.6 25-34 pg Mean Corpuscular Hemoglobin Concent 31.9 32-36 g/dl RDW Standard Deviation 53.3 36.4-46.3 fL RDW Coefficient of Variation 18.8 11.5-14.5 % Platelet Count 217 130-400 K/uL Mean Platelet Volume 10.8 7.4-10.4 fL Nucleated RBC Absolute Count (auto) 0.08 0-0 K/uL Nucleated Red Blood Cells % 0.6 % Sodium Level 135 136-145 mmol/L Potassium Level 3.0 3.5-5.1 mmol/L Chloride Level 93 98-107 mmol/L Carbon Dioxide Level 31 21-32 mmol/L Anion Gap 11.0 3-11 mmol/L Blood Urea Nitrogen 64 7-18 mg/dl Creatinine 2.79 0.60-1.40 mg/dl Est Creatinine Clear Calc Drug Dose 24.9 ml/min Estimated GFR () 25.5 Estimated GFR (Non- 22.0 BUN/Creatinine Ratio 23.0 10-20 Random Glucose 126 70-99 mg/dl Calcium Level 8.6 8.5-10.1 mg/dl Phosphorus Level 3.2 2.5-4.9 mg/dl Magnesium Level 2.3 1.8-2.4 mg/dl Total Bilirubin 3.8 0.2-1 mg/dl Aspartate Amino Transf (AST/SGOT) 4310 15-37 U/L Alanine Aminotransferase (ALT/SGPT) 2848 12-78 U/L Alkaline Phosphatase 44 45-117 U/L Total Protein 5.6 6.4-8.2 gm/dl Albumin 2.5 3.4-5.0 gm/dl Globulin 3.1 2.5-4.0 gm/dl Albumin/Globulin Ratio 0.8 0.9-2 Random Vancomycin Level 17.6 mcg/ml Bedside Glucose 119 141 191 70-99 mg/dl Test 03/31/17 11:02 03/31/17 12:01 03/31/17 13:00 03/31/17 14:00 Range/Units Bedside Glucose 157 172 191 201 70-99 mg/dl
--- NOTE | 2017-03-31 19:25 | Discharge Summary ---
Discharge Summary Date of Service Mar 31, 2017. Discharge Summary Admission Date: Mar 30, 2017 at 15:17 Discharge Date: Mar 31, 2017 Discharge Disposition: Acute care facility ([facility]) Principal Diagnosis: ACUTE ON CHRONIC SYSTOLIC chf SHOCK LIVER Secondary Diagnoses/Problems: (1) CAD (coronary artery disease) Permanent Comment: s/p CABG x 2 06/2001 s/p PCI - details unknown Status: Chronic (2) CKD (chronic kidney disease), stage IV Status: Chronic (3) DM type 1 (diabetes mellitus, type 1) Status: Chronic (4) HTN (hypertension) Status: Chronic (5) Ischemic cardiomyopathy Permanent Comment: EF 15-20% echo 11/2016 Status: Chronic (6) Presence of combination internal cardiac defibrillator (ICD) and pacemaker Status: Chronic Procedures: CXR: Mild congestive failure. LOWER VENOUS DOPPLER: No sonographic evidence of deep venous thrombosis within the right or left lower extremity. LIVER US: 1. Patent hepatic veins and IVC. No sonographic evidence of Budd-Chiari syndrome. Consultations: CRITICAL CARE Medication Reconciliation Continued Medications: Aspirin (Aspirin Ec) 81 Mg Tab 81 MG PO DAILY Atorvastatin (Lipitor) 20 Mg Tab 20 MG PO DAILY, TAB Carvedilol (Coreg) 25 Mg Tab 25 MG PO BID, TAB Cholecalciferol (Vitamin D3) 2,000 Unit Cap 2 CAP PO DAILY, CAP Choline Fenofibrate (Trilipix) 135 Mg Cap 1 CAP PO DAILY, CAP Clopidogrel (Plavix) 75 Mg Tab 75 MG PO DAILY, TAB Fish Oil ([place]-3) 1 Ea Cap 1 CAP PO DAILY, CAP Isosorbide Mononitrate Ext Rel (Imdur Ext Rel) 30 Mg Ertab 30 MG PO QAM, TAB Discontinued Medications: Furosemide (Lasix) 80 Mg Tab 80 MG PO DAILY, TAB Insulin Aspart (novoLOG INSULIN PUMP ) 1 Ea Inj 1 EA N/A UD Metolazone (Zaroxolyn) 2.5 Mg Tab 2.5 MG PO DAILY, TAB Potassium Chloride (Klor-Con M20) 20 Meq Tabcr 20 MEQ PO BID for 30 Days, #60 Spironolactone (Aldactone) 25 Mg Tab 25 MG PO DAILY, TAB Admission Information HPI (per Admitting provider): 72 year old male who was transferred to [facility] from [facility] for further treatment of ischemic cardiomyopathy, new onset atrial fibrillation, shock liver , and BRANDI. Patient was seen at his PCP on 03/29 at his PCPs office and diagnosed with a URI. He was started on doxycycline. Shortly after patient became acutely short of breath and went to [facility]'s ED. He was found to be in atrial fibrillation with RVR. Rates improved with Cardizem IV bolus x 2. He was also found to have BRANDI and significantly elevated LFTs. Overnight, patient required BiPap for respiratory distress. He had a troponin leak. He was started on IV Heparin for atrial fibrillation and possible ACS. Given the acuity of his illness, patient was transferred to [facility] ICU for further care. Per the family, patient recently had one of his pacemaker wires changed because it "broke" after the patient fell. At the time of my exam, patient reports he is feeling well and much improved from his presentation at [facility]. Vitals signs are currently stable. He denies chest pain, shortness of breath, lightheadedness, dizziness, diaphoresis, and syncope. No abdominal pain, nausea, vomiting, or diarrhea. He has a arguello in place. Physical Exam (per Admitting): General Appearance: WD/WN, no apparent distress Head: normocephalic, atraumatic Eyes: normal inspection, EOMI, sclerae normal ENT: hearing grossly normal, + pertinent finding (mucous membranes dry) Neck: supple, no JVD, trachea midline Respiratory/Chest: no respiratory distress, + decreased breath sounds (BL bases) Cardiovascular: no edema, normal peripheral pulses, + irregularly irregular (rate controlled) Abdomen/GI: normal bowel sounds, non tender, soft, no organomegaly Genitourinary - Male: + pertinent finding (arguello in place) Extremities/Musculoskelatal: normal inspection, no calf tenderness, normal capillary refill Neurologic/Psych: no motor/sensory deficits, alert, normal mood/affect, oriented x 3 Skin: normal color, warm/dry Hospital Course ISCHEMIC CARDIOMYOPATHY (PACER/AICD IN PLACE) POSSIBLE CARDIORENAL, HEPATORENAL SYNDROMES ATRIAL FIBRILLATION Acute on chronic systolic CHF admitted to ICU from [facility] patient with complicated history with limited records currently available as per H and P presented to [facility]'s ED day before with shortness of breath , found to have new onset atrial fibrillation, BRANDI, and elevated LFTs EF 15-20% on echo from 11/2016 possible hepatorenal syndrome from cardiorenal syndrome critical care on board \\patient was placed on milrinone drip patient was transferred to [facility] for further care. Shock liver from above total bili 3.8 alt 7000 today in 4000's ast 3000's today in 2000's transferred to [facility] LEUKOCYTOSIS no clear source of infection blood cultures obtained from [facility] on 03/29 U/A does not suggest infection, no infiltrate on CXR empiric Vanco and Zosyn until blood cultures result DM TYPE I holding home insulin pump and utilize insulin infusion while hospitalized DVT PROPHYLAXIS SQ heparin CODE STATUS Patient is a DNR as per Dr. Milton's discussion with patient and family. DISPOSITION transferred to [facility] Total time spent on discharge = 35MINUTES This includes examination of the patient, discharge planning, medication reconciliation, and communication with other providers. Discharge Instructions Please take this sheet to every appointment for the next month Discharge Instructions Date of Service Mar 31, 2017. Admission Reason for Admission: CHF Discharge Discharge Diagnosis / Problem: ACUTE SYSTOLIC CHF, SHOCK LIVER Discharge Goals Goal(s): Decrease discomfort, Improve function Activity Recommendations Activity Level: Assistance Required . Additional Information Patient informed of condition: Yes Advance Directives: Yes DNR: Yes Level of Care: Other (TRANSFER TO [facility].) Communicable Disease: No Prognosis: Other (TRANSFERRING TO TERTIARY CARE) Oxygen at (LPM): 2LTS Arguello Catheter: No Instructions / Follow-Up Instructions / Follow-Up FOLLOWUP PER [facility] RECOMMENDATIONS Current Hospital Diet Patient's current hospital diet: AHA Diet (Heart Healthy), Low Sodium Diet (2gm Na), Diabetes Type 1 Diet Discharge Diet Recommended Diet: AHA Diet (Heart Healthy), Diabetes Type 1 Diet Pending Studies Studies pending at discharge: no Physician Orders On Transfer Special Precautions: FALL AND ASPIRATION PRECAUTIONS IV Therapy: IV ZOSYN IV MILRINONE DRIP Vital Signs: EVERY 8HRS Additional Orders: PLEASE CHECK MEDICATION RECONCILIATION FOR ACCURATE MED LIST Medical Emergencies . Who to Call and When: Medical Emergencies: If at any time you feel your situation is an emergency, please call 911 immediately. . Non-Emergent Contact Non-Emergency issues call your: Primary Care Provider . . "Provider Documentation" section prepared by Amando Nuno. . Core Measure Problem Core Measures: None
== END 2017-03-31 15:10 | disposition short-term general hospital (02) | DRG 291 ==
LOC: C.MSICU 15:17
PROVIDERS: ADMIT Internal Medicine; ATTEND Internal Medicine
DX: I13.0 Hypertensive heart and chronic kidney disease with heart failure and stage 1 through stage 4 chronic kidney disease, or unspecified chronic kidney disease (principal); I50.23 Acute on chronic systolic (congestive) heart failure; N17.9 Acute kidney failure, unspecified; N18.4 Chronic kidney disease, stage 4 (severe); K72.00 Acute and subacute hepatic failure without coma; R57.0 Cardiogenic shock; I48.91 Unspecified atrial fibrillation; I25.5 Ischemic cardiomyopathy; I25.10 Atherosclerotic heart disease of native coronary artery without angina pectoris; E10.9 Type 1 diabetes mellitus without complications; Z95.810 Presence of automatic (implantable) cardiac defibrillator; Z87.891 Personal history of nicotine dependence; Z95.1 Presence of aortocoronary bypass graft; R74.0 Nonspecific elevation of levels of transaminase and lactic acid dehydrogenase [LDH]; Z96.41 Presence of insulin pump (external) (internal)